=== PATIENT | female | born 1955 | race African-American/Black ===

== ENCOUNTER 2018-10-07 16:09 | Emergency (ER) | payer MEDICARE, MEDICAID ==
[~2018-10-07] VITALS: Ht 160 cm; Wt 88.5 kg
[~2018-10-07 16:09] MED LIST: ALPR0.5T PO; ALPR0.5T7 PO; ASCO-262 PO; ASP325T PO; CEFU250T PO; CHOL200059 PO; CRAN500C4 PO; DULO30CA PO; ESTR1TAB24 PO; ESTRADIOL; FAMO-119 PO; FAMO20TA5 PO; FURO20TA4 PO; HYDR-34 PO; HYDR-3820 PO; LAMO100T PO; LAMO100T69 PO; LISI20TA PO; OMEP20TA7 PO; OXYB10TA PO; OXYC1TAB12 PO; POLY255P16 PO; PREG300C PO; PRILOSEC; PSEU30TA18 PO; RT-ALBUINH INH; VALA10004 PO; ZOLP10TA5 PO
--- OUTSIDE RECORDS SUMMARY | 2018-10-07 16:15 | XMS REPORT ---
Author Author SUNI BARNETT Organization [facility] Address [address] [place] [address] Care Team Providers Care Cobbler Upper Name Role Phone SUNI BARNETT Unavailable PROBLEMS Unknown Problems ALLERGIES Substance Reaction Event Type Date Status Ultram Unknown Drug Allergy Aug, Active Naproxen Unknown Drug Allergy Aug, Active Lyrica Unknown Drug Allergy Aug, Active Gabapentin Unknown Drug Allergy Aug, Active Cymbalta Unknown Drug Allergy Aug, Active coconut Unknown Non Drug Allergy Aug, Active ENCOUNTERS Encounter Location Date Diagnosis [facility] [id number] [place] [address] [phone] Oct, Dental caries K02.9 [facility] [id number] [place] [address] [phone] Aug, Dental caries K02.9 and Encounter for dental examination Z01.20 [facility] [id number] [place] [address] [phone] Jun, Dental examination Z01.20 IMMUNIZATIONS No Known Immunizations SOCIAL HISTORY Never Assessed REASON FOR VISIT SYED PLAN OF CARE Activity Details Follow Up prn Reason:TE #29 VITAL SIGNS Blood pressure systolic 116 mmHg 2017-08-23 Blood pressure diastolic 79 mmHg 2017-08-23 MEDICATIONS Medication Instructions Dosage Frequency Start Date End Date Duration Status Omeprazole 20 MG Orally Once a day 2 capsules 24h Active Estradiol 0.5 MG 1 tablet Active Xanax 0.5 MG Orally Three times a day 1 tablet 8h Active Vitamin D (Ergocalciferol) 01301 UNIT 1 capsule Active Lamotrigine 100 MG Orally Twice a day 2 tablets 12h Active Vitamin D 2000 UNIT Orally Once a day 1 tablet 24h Active Bisoprolol Fumarate Active Oxycodone HCl 10 MG Orally every 6 hrs 1 tablet as needed 6h Active Hydrocodone-Acetaminophen 10-325 MG Orally every 6 hrs 1 tablet as needed 6h Active RESULTS No Results PROCEDURES Procedure Date Ordered Result Body Site LTD ORAL EVALUATION - PROBLEM FOCUS Aug 23, 2017 INTRAORL-PERIAPICAL 1 FILM [id number] Aug 23, 2017 EXTRAC ERUPTED TOOTH/EXPOSED ROOT Aug 23, 2017 BITEWING - SINGLE FILM Aug 23, 2017 INSTRUCTIONS MEDICATIONS ADMINISTERED No Known Medications MEDICAL (GENERAL) HISTORY Type Description Date Medical History Fibromalaga Medical History arthritis Medical History back trouble 4 heriated disks Medical History TIA/2008 Surgical History c-sections Surgical History hysterectomy Hospitalization History chest pains
--- OUTSIDE RECORDS SUMMARY | 2018-10-07 16:15 | XMS REPORT ---
Author Author HIREN MENDEZ [facility] Address [address] [place] [address] Phone Unavailable Care Team Providers Care Hide Inspector And Sorter Name Role Phone HIREN MENDEZ Unavailable Unavailable PROBLEMS Unknown Problems ALLERGIES Substance Reaction Event Type Date Status Ultram Unknown Drug Allergy Jun, Active Lyrica Unknown Drug Allergy Jun, Active Gabapentin Unknown Drug Allergy Jun, Active Cymbalta Unknown Drug Allergy Jun, Active coconut Unknown Non Drug Allergy Jun, Active SOCIAL HISTORY No smoking Hx information available PLAN OF CARE Activity Details Follow Up crow Reason:SRP VITAL SIGNS Blood pressure systolic 112 mmHg 2016-06-23 Blood pressure diastolic 74 mmHg 2016-06-23 MEDICATIONS Medication Instructions Dosage Frequency Start Date End Date Duration Status Vitamin D 2000 UNIT Orally Once a day 1 tablet 24h Active Xanax 0.5 MG Orally Three times a day 1 tablet 8h Active Estradiol 0.5 MG 1 tablet Active Hydrocodone-Acetaminophen 10-325 MG Orally every 6 hrs 1 tablet as needed 6h Active Omeprazole 20 MG Orally Once a day 2 capsules 24h Active Lamotrigine 100 MG Orally Twice a day 2 tablets 12h Active Vitamin D (Ergocalciferol) 50265 UNIT 1 capsule Active Oxycodone HCl 10 MG Orally every 6 hrs 1 tablet as needed 6h Active RESULTS No Results PROCEDURES Procedure Date Ordered Related Diagnosis Body Site COMP ORAL EVALUATION - NEW/EST PT Jun 23, 2016 PANORAMIC FILM SEE ALSO CODE 02354 Jun 23, 2016 INTRAORL-PERIAPICAL EA ADD FILM Jun 23, 2016 INTRAORL-PERIAPICAL 1 FILM 96704 Jun 23, 2016 BITEWINGS - FOUR FILMS Jun 23, 2016 INTRAORL-PERIAPICAL EA ADD FILM Jun 23, 2016 IMMUNIZATIONS No Known Immunizations
--- OUTSIDE RECORDS SUMMARY | 2018-10-07 16:15 | XMS REPORT ---
Author Author SUNI BARNETT Organization [facility] Address [address] [place] [address] Care Team Providers Care Rubber And Plastics Worker Name Role Phone SUNI BARNETT Unavailable PROBLEMS Unknown Problems ALLERGIES Substance Reaction Event Type Date Status Ultram Unknown Drug Allergy Oct, Active Naproxen Unknown Drug Allergy Oct, Active Lyrica Unknown Drug Allergy Oct, Active Gabapentin Unknown Drug Allergy Oct, Active Cymbalta Unknown Drug Allergy Oct, Active coconut Unknown Non Drug Allergy Oct, Active ENCOUNTERS Encounter Location Date Diagnosis [facility] [id number] [place] [address] [id number] Oct, Dental caries K02.9 [facility] [id number] [place] [address] [id number] Aug, Dental caries K02.9 and Encounter for dental examination Z01.20 [facility] [id number] [place] [address] [phone] Jun, Dental examination Z01.20 IMMUNIZATIONS No Known Immunizations SOCIAL HISTORY Never Assessed REASON FOR VISIT TE #29 PLAN OF CARE Activity Details Follow Up prn Reason:HOLGER VITAL SIGNS Blood pressure systolic 132 mmHg 2017-10-18 Blood pressure diastolic 78 mmHg 2017-10-18 MEDICATIONS Medication Instructions Dosage Frequency Start Date End Date Duration Status Omeprazole 20 MG Orally Once a day 2 capsules 24h Active Xanax 0.5 MG Orally Three times a day 1 tablet 8h Active Estradiol 0.5 MG 1 tablet Active Bisoprolol Fumarate Active Lamotrigine 100 MG Orally Twice a day 2 tablets 12h Active Vitamin D 2000 UNIT Orally Once a day 1 tablet 24h Active Vitamin D (Ergocalciferol) 29358 UNIT 1 capsule Active Hydrocodone-Acetaminophen 10-325 MG Orally every 6 hrs 1 tablet as needed 6h Active Oxycodone HCl 10 MG Orally every 6 hrs 1 tablet as needed 6h Active RESULTS No Results PROCEDURES Procedure Date Ordered Result Body Site INTRAORL-PERIAPICAL 1 FILM 47699 October 18, 2017 INTRAORL-PERIAPICAL EA ADD FILM October 18, 2017 EXTRAC ERUPTED TOOTH/EXPOSED ROOT October 18, 2017 INSTRUCTIONS MEDICATIONS ADMINISTERED No Known Medications MEDICAL (GENERAL) HISTORY Type Description Date Medical History Fibromalaga Medical History arthritis Medical History back trouble 4 heriated disks Medical History TIA/2008 Surgical History c-sections Surgical History hysterectomy Hospitalization History chest pains
--- OUTSIDE RECORDS SUMMARY | 2018-10-07 16:15 | XMS REPORT | Continuity of Care Document ---
Author Author [facility] Organization [facility] Address Unknown Phone Unavailable Allergies Active Description Code Type Severity Reaction Onset Reported/Identified Relationship to Patient Clinical Status Yes gabapentin [id number] Drug Allergy Unknown N/A 09/13/2015 Yes iodine [id number] Drug Allergy Unknown N/A 09/13/2015 Yes pregabalin [id number] Drug Allergy Unknown N/A 09/13/2015 Yes tramadol [id number] Drug Allergy Unknown N/A 09/13/2015 Yes ketorolac [id number] Drug Allergy Mild N/V 09/30/2015 Yes amitriptyline [id number] Drug Allergy Unknown N/A 09/30/2015 Medications There is no data. Problems Date Dx Coded Attending Type Code Diagnosis Diagnosed By 09/13/2015 LIDIA JOHNSON Ot K29.70 GASTRITIS, UNSPECIFIED, WITHOUT BLEEDING 09/13/2015 LIDIA JOHNSON Ot M79.2 NEURALGIA AND NEURITIS, UNSPECIFIED 09/13/2015 LIDIA JOHNSON Ot M79.604 PAIN IN RIGHT LEG 09/13/2015 LIDIA JOHNSON Ot R51 HEADACHE 10/01/2015 CAT MAXWELL MD Ot M54.10 RADICULOPATHY, SITE UNSPECIFIED 10/01/2015 CAT MAXWELL MD Ot M79.7 FIBROMYALGIA 10/01/2015 CAT MAXWELL MD Ot N39.0 URINARY TRACT INFECTION, SITE NOT SPECIF 10/01/2015 CAT MAXWELL MD Ot R07.89 OTHER CHEST PAIN 10/01/2015 CAT MAXWELL MD Ot R55 SYNCOPE AND COLLAPSE 10/01/2015 CAT MAXWELL MD Ot M54.10 10/01/2015 CAT MAXWELL MD Ot M79.7 10/01/2015 CAT MAXWELL MD Ot N39.0 10/01/2015 CAT MAXWELL MD Ot R07.89 10/01/2015 CAT MAXWELL MD, Ot R55 Procedures There is no data. Results There is no data. Encounters ACCT No. Visit Date/Time Discharge Status Pt. Type Provider Facility Loc./Unit Complaint [id number] 09/30/2015 20:45:00 10/01/2015 13:57:00 DIS Inpatient CAT MAXWELL MD [facility] [address] [id number] 09/13/2015 19:33:00 09/13/2015 22:13:00 DIS Emergency LIDIA JOHNSON [facility] ER [id number] 10/07/2018 09:40:00 ACT Outpatient [facility]
[2018-10-07] MEDS ORDERED: NS IV 500 ML 500 ML IV ONE (16:18)
--- NOTE | 2018-10-07 16:30 | ED General ---
General Stated Complaint: PT FEELING LIGHT HEADED, SOB Source of Information: Patient Exam Limitations: No Limitations History of Present Illness Date Seen by Provider: Oct 07, 2018 Time Seen by Provider: 16:09 Initial Comments Here with report of generalized feeling of weakness. She had finished physical therapy for her knee and had drank a Sprite. She suddenly became very weak all over and felt a little sweaty. Had some nausea but no vomiting. She is feeling a little better now. She had a similar reaction yesterday after eating some sweets and is concerned that she is diabetic. Denies chest pain or breathing problems. Reports taking her meds as directed. Reported that she nearly passed out. Recently completed treatment for urinary tract infection Timing/Duration: 1 Hour, Changing Over Time Severity: Moderate Modifying Factors: improves with Rest Associated Systoms: No Chest Pain, No Cough; Diaphoresis; No Fever/Chills, No Loss of Appetite, No Nausea/Vomiting, No Shortness of Air; Weakness Allergies and Home Medications Allergies Coded Allergies: amitriptyline (Verified Allergy, Unknown, 09/30/15) gabapentin (Verified Allergy, Unknown, 09/13/15) pregabalin (Verified Allergy, Unknown, 09/13/15) tramadol (Verified Allergy, Unknown, 09/13/15) ketorolac (Verified Adverse Reaction, Mild, N/V, 09/30/15) iodine (Unverified Adverse Reaction, Unknown, 09/13/15) Home Medications Albuterol Sulfate 8.5 Gm Hfa.aer.ad, 2 PUFF INH Q6H PRN for SHORTNESS OF BREATH, (Reported) Alprazolam 0.5 Mg Tablet, 0.5 MG PO QID PRN for ANXIETY, (Reported) Ascorbate Calcium 500 Mg Tablet, 500 MG PO DAILY, (Reported) Cefuroxime Axetil 250 Mg Tablet, 250 MG PO BID Prescribed by: CAT MAXWELL on 10/01/15 1113 Cholecalciferol (Vitamin D3) 2,000 Unit Tablet, 2,000 UNIT PO DAILY, (Reported) Cranberry Extract 500 Mg Capsule, 500 MG PO DAILY, (Reported) Estradiol 1 Mg Tablet, 1 MG PO DAILY, (Reported) Furosemide 20 Mg Tablet, 20 MG PO DAILY PRN for SWELLING, (Reported) Hydrocodone/Acetaminophen 1 Each Tablet, 1 TAB PO Q4H PRN for PAIN, (Reported) Lamotrigine 100 Mg Tablet, 100 MG PO BID, (Reported) LAST FILLED #60 06-15-15 Omeprazole 20 Mg Tablet.dr, 20 MG PO DAILY Prescribed by: CAT MAXWELL on 10/01/15 1041 Oxybutynin Chloride 10 Mg Tab.er.24, 10 MG PO DAILY, (Reported) Polyethylene Glycol 3350 255 Gm Powder, 17 GM PO DAILY PRN for CONSTIPATION, ( Reported) Zolpidem Tartrate 10 Mg Tablet, 10 MG PO HS PRN for SLEEP, (Reported) Patient Home Medication List Home Medication List Reviewed: Yes Review of Systems Review of Systems Constitutional: see HPI; No chills, No fever; malaise, weakness EENTM: no symptoms reported Respiratory: No cough, No short of breath Cardiovascular: No chest pain, No edema; syncope Gastrointestinal: No abdominal pain; nausea; No vomiting Genitourinary: no symptoms reported : No Musculoskeletal: no symptoms reported All Other Systems Reviewed Negative Unless Noted: Yes Past Xpcufyc-Fipreg-Ovqorc Hx Past Med/Social Hx: Reviewed Nursing Past Med/Soc Hx Patient Social History Alcohol Use: Denies Use Recreational Drug Use: No Smoking Status: Never a Smoker Recent Foreign Travel: No Contact w/Someone Who Travel: No Immunizations Up To Date PED Vaccines UTD: Yes Date of Influenza Vaccine: Jun 01, 2015 Past Medical History Surgeries: Yes Section, Hysterectomy, Orthopedic Respiratory: No Currently Using CPAP: No Currently Using BIPAP: No Cardiac: Yes Chronic Edema/Swelling Neurological: Yes Stroke 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 Disorders: No Female 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 Disorders: Denies Sexually Transmitted Disease: No HIV/AIDS: No UTI-Chronic Gastrointestinal: Yes Gastroesophageal Reflux, Chronic Constipation, Polyps, Hiatal Hernia Musculoskeletal: Yes Osteoporosis, Fibromyalgia Loss of Vision: Denies Hearing Impairment: Denies Psychosocial: Yes Anxiety Adverse Reaction/Blood Tranf: No Family Medical History Reviewed Nursing Family Hx Heart Disease Physical Exam Vital Signs Vital Signs - First Documented 10/07/18 16:15 Temp 96.9 Pulse 68 Resp 22 B/P (MAP) 119/86 (97) Pulse Ox 98 O2 Delivery Room Air Capillary Refill : Height, Weight, BMI Height: 5'6.00" Weight: 171lbs. 8.0oz. 77.439431wk; 27.60 BMI Method: General Appearance: No Apparent Distress, WD/WN HEENT: PERRL/EOMI, Pharynx Normal Neck: Non Tender, Supple Respiratory: Lungs Clear, Normal Breath Sounds Cardiovascular: Regular Rate, Rhythm, No Murmur Gastrointestinal: Non Tender, Soft Extremity: Normal Range of Motion, Non Tender Neurologic/Psychiatric: Alert, Oriented x3 Skin: Normal Color, Warm/Dry Progress/Results/Core Measures Suspected Sepsis SIRS Temperature: Pulse: Respiratory Rate: Laboratory Tests 10/07/18 16:27: White Blood Count 4.5 Blood Pressure / Mean: Laboratory Tests 10/07/18 16:27: Creatinine 1.09, Platelet Count 267, Total Bilirubin 0.4 Results/Orders Lab Results Laboratory Tests Test 10/07/18 16:15 10/07/18 16:27 10/07/18 17:00 Range/Units Glucometer 106 70-110 MG/DL White Blood Count 4.5 4.3-11.0 10^3/uL Red Blood Count 3.82 L 4.35-5.85 10^6/uL Hemoglobin 11.4 L 11.5-16.0 G/DL Hematocrit 36 35-52 % Mean Corpuscular Volume 94 80-99 FL Mean Corpuscular Hemoglobin 30 25-34 PG Mean Corpuscular Hemoglobin Concent 32 32-36 G/DL Red Cell Distribution Width 13.3 10.0-14.5 % Platelet Count 267 130-400 10^3/uL Mean Platelet Volume 9.0 7.4-10.4 FL Neutrophils (%) (Auto) 37 L 42-75 % Lymphocytes (%) (Auto) 54 H 12-44 % Monocytes (%) (Auto) 7 0-12 % Eosinophils (%) (Auto) 2 0-10 % Basophils (%) (Auto) 1 0-10 % Neutrophils # (Auto) 1.7 L 1.8-7.8 X 10^3 Lymphocytes # (Auto) 2.4 1.0-4.0 X 10^3 Monocytes # (Auto) 0.3 0.0-1.0 X 10^3 Eosinophils # (Auto) 0.1 0.0-0.3 10^3/uL Basophils # (Auto) 0.0 0.0-0.1 10^3/uL D-Dimer 0.42 0.00-0.49 UG/ML Sodium Level 139 135-145 MMOL/L Potassium Level 3.6 3.6-5.0 MMOL/L Chloride Level 99 98-107 MMOL/L Carbon Dioxide Level 29 21-32 MMOL/L Anion Gap 11 5-14 MMOL/L Blood Urea Nitrogen 12 7-18 MG/DL Creatinine 1.09 0.60-1.30 MG/DL Estimat Glomerular Filtration Rate > 60 BUN/Creatinine Ratio 11 Glucose Level 113 H 70-105 MG/DL Calcium Level 9.5 8.5-10.1 MG/DL Corrected Calcium 9.1 8.5-10.1 MG/DL Magnesium Level 1.9 1.8-2.4 MG/DL Total Bilirubin 0.4 0.1-1.0 MG/DL Aspartate Amino Transf (AST/SGOT) 18 5-34 U/L Alanine Aminotransferase (ALT/SGPT) 13 0-55 U/L Alkaline Phosphatase 56 40-136 U/L Troponin T < 6 <=10 NG/L Total Protein 7.3 6.4-8.2 GM/DL Albumin 4.5 3.2-4.5 GM/DL Urine Color YELLOW Urine Clarity CLEAR Urine pH 6.0 5-9 Urine Specific [place] 1.020 1.016-1.022 Urine Protein NEGATIVE NEGATIVE Urine Glucose (UA) NEGATIVE NEGATIVE Urine Ketones NEGATIVE NEGATIVE Urine Nitrite NEGATIVE NEGATIVE Urine Bilirubin NEGATIVE NEGATIVE Urine Urobilinogen 0.2 NORMAL MG/DL Urine Leukocyte Esterase NEGATIVE NEGATIVE Urine RBC (Auto) NEGATIVE NEGATIVE Urine RBC 0-2 /HPF Urine WBC 0-2 /HPF Urine Squamous Epithelial Cells 0-2 /HPF Urine Crystals NONE /LPF Urine Bacteria NEGATIVE /HPF Urine Casts NONE /LPF Urine Mucus FEW /LPF Urine Culture Indicated NO My Orders Orders - KARLY HOPKINS MD Cbc With Automated Diff (10/07/18 16:18) Comprehensive Metabolic Panel (10/07/18 16:18) Fibrin Degradation Products (10/07/18 16:18) Magnesium (10/07/18 16:18) Ua Culture If Indicated (10/07/18 16:18) Troponin T (10/07/18 16:18) Accucheck Stat ONCE (10/07/18 16:18) Ekg Tracing (10/07/18 16:18) Monitor-Rhythm Ecg Trace Only (10/07/18 16:18) Chest 1 View Ap/Pa Only (10/07/18 16:18) Saline Lock/Iv-Start (10/07/18 16:18) Ns Iv 500 Ml (Sodium Chloride 0.9%) (10/07/18 16:18) Hs C Reactive Protein (10/07/18 16:24) Ondansetron Injection (Zofran Injectio (10/07/18 16:45) Medications Given in ED Current Medications Medications Dose Ordered Sig/Roseanne Route Start Time Stop Time Status Last Admin Dose Admin Ondansetron HCl 4 mg ONCE ONCE IVP 10/07/18 16:45 10/07/18 16:46 DC 10/07/18 16:46 4 MG Sodium Chloride 500 ml @ 0 mls/hr Q0M ONCE IV 10/07/18 16:18 10/07/18 16:21 DC 10/07/18 16:46 1,000 MLS/HR Vital Signs/I&O 10/07/18 16:15 Temp 96.9 Pulse 68 Resp 22 B/P (MAP) 119/86 (97) Pulse Ox 98 O2 Delivery Room Air Capillary Refill : Progress Note : Progress Note Seen and evaluated. IV, labs, UA, normal saline 500 mL bolus and EKG ordered. Monitor patient. 1745: Labs reviewed and no significant findings. Chest x-ray does not show any acute abnormalities. Patient is overall feeling much better. She does have follow-up later this month for a large cyst on her kidney that she is having evaluated. She will keep that appointment. At this point though there is no other concerning findings and she had both flu she is safe to go home. Discharged home with return precautions. Patient verbalize understanding instructions and agreement with plan. ECG Initial ECG Impression Date: Oct 07, 2018 Initial ECG Impression Time: 17:06 Initial ECG Rate: 64 Initial ECG Rhythm: Normal Sinus Comment Sinus rhythm with normal axis. No evidence of ST elevation MD. Similar to previous of 09/30/15. Interpreted by me. Departure Impression Primary Impression: Near syncope Disposition: 01 HOME, SELF-CARE Condition: Improved Departure-Patient Inst. Decision time for Depature: 17:47 Referrals: NO,LOCAL PHYSICIAN (PCP/Family) Primary Care Physician Patient Instructions: Syncope (Fainting) (DC) Add. Discharge Instructions: You should eat a normal diet and drink adequate amount of fluids. Avoid heavily sugared foods or fluids. Keep your follow-up appointment with the kidney doctor. Return for worse pain, fever, vomiting, weakness, breathing problems or other concerns as needed. KARLY HOPKINS MD Oct 07, 2018 16:30
[2018-10-07 16:36] LABS: HEMATOCRIT 36 % (35-52); HEMOGLOBIN 11.4 G/DL (11.5-16.0); LYMPHOCYTES % (AUTO) 54 % (12-44); MEAN CORPUSCULAR HEMOGLOBIN 30 PG (25-34); MEAN CORPUSCULAR HGB CONC 32 G/DL (32-36); MEAN CORPUSCULAR VOLUME 94 FL (80-99); MONOCYTES % (AUTO) 7 % (0-12); NEUTROPHILS % (AUTO) 37 % (42-75); PLATELET COUNT 267 10^3/uL (130-400); RED CELL DISTRIBUTION WIDTH 13.3 % (10.0-14.5); WHITE BLOOD COUNT 4.5 10^3/uL (4.3-11.0)
[2018-10-07 16:37] LABS: BASOPHILS % (AUTO) 1 % (0-10); EOSINOPHILS # (AUTO) 0.1 10^3/uL (0.0-0.3); EOSINOPHILS % (AUTO) 2 % (0-10); LYMPHOCYTES # (AUTO) 2.4 X 10^3 (1.0-4.0); MONOCYTES # (AUTO) 0.3 X 10^3 (0.0-1.0); NEUTROPHILS # (AUTO) 1.7 X 10^3 (1.8-7.8)
[2018-10-07] MEDS ORDERED: ONDANSETRON 4 MG/2 ML (SDV) Z0FRAN IVP ONE (16:45)
[2018-10-07 16:59] LABS: CHLORIDE 99 MMOL/L (98-107); POTASSIUM 3.6 MMOL/L (3.6-5.0); SODIUM 139 MMOL/L (135-145)
[2018-10-07 17:00] LABS: ALANINE AMINOTRANSFERASE 13 U/L (0-55); ALBUMIN 4.5 GM/DL (3.2-4.5); ALKALINE PHOSPHATASE 56 U/L (40-136); BILIRUBIN,TOTAL 0.4 MG/DL (0.1-1.0); BUN/CREATININE RATIO 11; CALCIUM 9.5 MG/DL (8.5-10.1); CARBON DIOXIDE 29 MMOL/L (21-32); CREATININE SERUM 1.09 MG/DL (0.60-1.30); GFR ESTIMATED > 60; GLUCOSE 113 MG/DL (70-105); MAGNESIUM 1.9 MG/DL (1.8-2.4); TOTAL PROTEIN 7.3 GM/DL (6.4-8.2)
[2018-10-07 17:17] LABS: BILIRUBIN,URINE NEGATIVE (NEGATIVE); CLARITY,URINE CLEAR; COLOR,URINE YELLOW; GLUCOSE, URINE (UA) NEGATIVE (NEGATIVE); KETONES,URINE NEGATIVE (NEGATIVE); NITRITE,URINE NEGATIVE (NEGATIVE); PROTEIN,URINE NEGATIVE (NEGATIVE)
[2018-10-07 17:18] LABS: BACTERIA,URINE NEGATIVE /HPF; LEUKOCYTE ESTERASE ,URINE NEGATIVE (NEGATIVE); RBC,URINE 0-2 /HPF; SQUAMOUS EPITHELIAL CELL,UR 0-2 /HPF; UROBILINOGEN,URINE 0.2 MG/DL (NORMAL); WBC,URINE 0-2 /HPF
--- NOTE | 2018-10-07 17:52 | Diagnostic Imaging Report ---
INDICATION: Cough, chest pain, shortness of breath. FINDINGS: Frontal view of the chest demonstrates the lungs to be clear. The heart, mediastinum, pulmonary vascularity are normal. IMPRESSION: Negative chest. Dictated by: Dictated on workstation # [id number]
[2018-10-07 17:55] VITALS: BP 117/74
== END 2018-10-07 17:58 | disposition home or self-care (01) ==
LOC: EDUNIT# 16:09 → ER FS 16:12
DX: R55 Syncope and collapse (principal); E11.9 Type 2 diabetes mellitus without complications; K21.9 Gastro-esophageal reflux disease without esophagitis; M81.0 Age-related osteoporosis without current pathological fracture; F41.9 Anxiety disorder, unspecified; Z88.6 Allergy status to analgesic agent; Z88.4 Allergy status to anesthetic agent; Z91.041 Radiographic dye allergy status; Z82.49 Family history of ischemic heart disease and other diseases of the circulatory system; Z88.8 Allergy status to other drugs, medicaments and biological substances; Z90.710 Acquired absence of both cervix and uterus; Z98.890 Other specified postprocedural states; Z86.73 Personal history of transient ischemic attack (TIA), and cerebral infarction without residual deficits; Z87.440 Personal history of urinary (tract) infections; Z87.19 Personal history of other diseases of the digestive system; Z86.010 Personal history of colon polyps
CPT/HCPCS: 36415; 71045; 80053; 81000; 82962; 83735; 84484; 85025; 85379; 86141; 93005; 93041; 96374

== ENCOUNTER 2018-12-15 00:53 | Emergency (ER) | payer MEDICARE ==
[~2018-12-15] VITALS: Ht 162.6 cm; Wt 86.2 kg
--- OUTSIDE RECORDS SUMMARY | 2018-12-15 00:59 | XMS REPORT | Continuity of Care Document ---
Author Organization Unknown Address Unknown Allergies Active Description Code Type Severity Reaction Onset Reported/Identified Relationship to Patient Clinical Status Yes gabapentin [id number] Drug Allergy Unknown N/A 09/13/2015 Yes iodine [id number] Drug Allergy Unknown N/A 09/13/2015 Yes pregabalin [id number] Drug Allergy Unknown N/A 09/13/2015 Yes tramadol [id number] Drug Allergy Unknown N/A 09/13/2015 Yes ketorolac [id number] Drug Allergy Mild N/V 09/30/2015 Yes amitriptyline [id number] Drug Allergy Unknown N/A 09/30/2015 Medications There is no data. Problems Date Dx Coded Attending Type Code Diagnosis Diagnosed By 09/13/2015 LIDIA JOHNSON Ot K29.70 GASTRITIS, UNSPECIFIED, WITHOUT BLEEDING 09/13/2015 LIDIA JOHNSON Ot M79.2 NEURALGIA AND NEURITIS, UNSPECIFIED 09/13/2015 LIDIA JOHNSON Ot M79.604 PAIN IN RIGHT LEG 09/13/2015 LIDIA JOHNSON Ot R51 HEADACHE 10/01/2015 ALISSA VILLEDA, CAT Herrera Ot M54.10 RADICULOPATHY, SITE UNSPECIFIED 10/01/2015 ALISSA VILLEDA, CAT Herrera Ot M79.7 FIBROMYALGIA 10/01/2015 ALISSA VILLEDA, CAT Herrera Ot N39.0 URINARY TRACT INFECTION, SITE NOT SPECIF 10/01/2015 ALISSA VILLEDA, CAT Herrera Ot R07.89 OTHER CHEST PAIN 10/01/2015 CAT MAXWELL MD Ot R55 SYNCOPE AND COLLAPSE 10/01/2015 CAT MAXWELL MD Ot M54.10 10/01/2015 CAT MAXWELL MD Ot M79.7 10/01/2015 CAT MAXWELL MD Ot N39.0 10/01/2015 CAT MAXWELL MD Ot R07.89 10/01/2015 CAT MAXWELL MD Ot R55 10/07/2018 KARLY HOPKINS MD, Ot E11.9 TYPE 2 DIABETES MELLITUS WITHOUT COMPLIC 10/07/2018 KARLY HOPKINS MD, Ot F41.9 ANXIETY DISORDER, UNSPECIFIED 10/07/2018 KARLY HOPKINS MD, Ot K21.9 GASTRO-ESOPHAGEAL REFLUX DISEASE WITHOUT 10/07/2018 KARLY HOPKINS MD, Ot M81.0 AGE-RELATED OSTEOPOROSIS W/O CURRENT PAT 10/07/2018 KARLY HOPKINS MD, Ot R53.1 WEAKNESS 10/07/2018 KARLY HOPKINS MD, Ot R55 SYNCOPE AND COLLAPSE 10/07/2018 KARLY HOPKINS MD, Ot Z82.49 FAMILY HX OF ISCHEM HEART DIS AND OTH DI 10/07/2018 KARLY HOPKINS MD, Ot Z86.010 PERSONAL HISTORY OF COLONIC POLYPS 10/07/2018 KARLY HOPKINS MD, Ot Z86.73 PRSNL HX OF TIA (TIA), AND CEREB INFRC W 10/07/2018 KARLY HOPKINS MD, Ot Z87.19 PERSONAL HISTORY OF OTHER DISEASES OF TH 10/07/2018 KARLY HOPKINS MD, Ot Z87.440 PERSONAL HISTORY OF URINARY (TRACT) INFE 10/07/2018 KARLY HOPKINS MD, Ot Z88.4 ALLERGY STATUS TO ANESTHETIC AGENT STATU 10/07/2018 KARLY HOPKINS MD, Ot Z88.6 ALLERGY STATUS TO ANALGESIC AGENT STATUS 10/07/2018 KARLY HOPKINS MD, Ot Z88.8 ALLERGY STATUS TO OT DRUG/MEDS/BIOL SUB 10/07/2018 KARLY HOPKINS MD, Ot Z90.710 ACQUIRED ABSENCE OF BOTH CERVIX AND UTER 10/07/2018 KARLY HOPKINS MD, Ot Z91.041 RADIOGRAPHIC DYE ALLERGY STATUS 10/07/2018 KARLY HOPKINS MD, Ot Z98.890 OTHER SPECIFIED POSTPROCEDURAL STATES 10/12/2018 KARLY HOPKINS MD, Ot E11.9 TYPE 2 DIABETES MELLITUS WITHOUT COMPLIC 10/12/2018 KARLY HOPKINS MD, Ot F41.9 ANXIETY DISORDER, UNSPECIFIED 10/12/2018 KARLY HOPKINS MD, Ot K21.9 GASTRO-ESOPHAGEAL REFLUX DISEASE WITHOUT 10/12/2018 KARLY HOPKINS MD, Ot M81.0 AGE-RELATED OSTEOPOROSIS W/O CURRENT PAT 10/12/2018 KARLY HOPKINS MD, Ot R53.1 WEAKNESS 10/12/2018 KARLY HOPKINS MD, Ot R55 SYNCOPE AND COLLAPSE 10/12/2018 KARLY HOPKINS MD, Ot Z82.49 FAMILY HX OF ISCHEM HEART DIS AND OTH DI 10/12/2018 KARLY HOPKINS MD, Ot Z86.010 PERSONAL HISTORY OF COLONIC POLYPS 10/12/2018 KARLY HOPKINS MD, Ot Z86.73 PRSNL HX OF TIA (TIA), AND CEREB INFRC W 10/12/2018 KARLY HOPKINS MD, Ot Z87.19 PERSONAL HISTORY OF OTHER DISEASES OF TH 10/12/2018 KARLY HOPKINS MD, Ot Z87.440 PERSONAL HISTORY OF URINARY (TRACT) INFE 10/12/2018 KARLY HOPKINS MD, Ot Z88.4 ALLERGY STATUS TO ANESTHETIC AGENT STATU 10/12/2018 KARLY HOPKINS MD, Ot Z88.6 ALLERGY STATUS TO ANALGESIC AGENT STATUS 10/12/2018 KARLY HOPKINS MD, Ot Z88.8 ALLERGY STATUS TO OTH DRUG/MEDS/BIOL SUB 10/12/2018 KARLY HOPKINS MD, Ot Z90.710 ACQUIRED ABSENCE OF BOTH CERVIX AND UTER 10/12/2018 KARLY HOPKINS MD, Ot Z91.041 RADIOGRAPHIC DYE ALLERGY STATUS 10/12/2018 KARLY HOPKINS MD, Ot Z98.890 OTHER SPECIFIED POSTPROCEDURAL STATES Procedures There is no data. Results Test Result Range CULTURE, URINE - 09/05/18 17:35 CULTURE, URINE, ROUTINE SEE NOTE NRG CULTURE, URINE - 10/07/18 09:21 CULTURE, URINE, ROUTINE SEE NOTE NRG Capillary blood glucose measurement by glucometer (mass/volume) - 10/07/18 16:15 Capillary blood glucose measurement by glucometer (mass/volume) 106 mg/dL 70-110 Complete blood count (CBC) with automated white blood cell (WBC) differential - 10/07/18 16:27 Blood leukocytes automated count (number/volume) 4.5 10*3/uL 4.3-11.0 Blood erythrocytes automated count (number/volume) 3.82 10*6/uL 4.35-5.85 Venous blood hemoglobin measurement (mass/volume) 11.4 g/dL 11.5-16.0 Blood hematocrit (volume fraction) 36 % 35-52 Automated erythrocyte mean corpuscular volume 94 [foz_us] 80-99 Automated erythrocyte mean corpuscular hemoglobin (mass per erythrocyte) 30 pg 25-34 Automated erythrocyte mean corpuscular hemoglobin concentration measurement (mass/volume) 32 g/dL 32-36 Automated erythrocyte distribution width ratio 13.3 % 10.0- 14.5 Automated blood platelet count (count/volume) 267 10*3/uL 130-400 Automated blood platelet mean volume measurement 9.0 [foz_us] 7.4-10.4 Automated blood neutrophils/100 leukocytes 37 % 42-75 Automated blood lymphocytes/100 leukocytes 54 % 12-44 Blood monocytes/100 leukocytes 7 % 0-12 Automated blood eosinophils/100 leukocytes 2 % 0-10 Automated blood basophils/100 leukocytes 1 % 0-10 Blood neutrophils automated count (number/volume) 1.7 10*3 1.8-7.8 Blood lymphocytes automated count (number/volume) 2.4 10*3 1.0-4.0 Blood monocytes automated count (number/volume) 0.3 10*3 0.0- 1.0 Automated eosinophil count 0.1 10*3/uL 0.0-0.3 Automated blood basophil count (count/volume) 0.0 10*3/uL 0.0-0.1 Comprehensive metabolic panel - 10/07/18 16:27 Serum or plasma sodium measurement (moles/volume) 139 mmol/L 135-145 Serum or plasma potassium measurement (moles/volume) 3.6 mmol/L 3.6-5.0 Serum or plasma chloride measurement (moles/volume) 99 mmol/L 98-107 Carbon dioxide 29 mmol/L 21-32 Serum or plasma anion gap determination (moles/volume) 11 mmol/L 5-14 Serum or plasma urea nitrogen measurement (mass/volume) 12 mg/dL 7-18 Serum or plasma creatinine measurement (mass/volume) 1.09 mg/dL 0.60-1.30 Serum or plasma urea nitrogen/creatinine mass ratio 11 NRG Serum or plasma creatinine measurement with calculation of estimated glomerular filtration rate > NRG Serum or plasma glucose measurement (mass/volume) 113 mg/dL 70-105 Serum or plasma calcium measurement (mass/volume) 9.5 mg/dL 8.5-10.1 Serum or plasma total bilirubin measurement (mass/volume) 0.4 mg/dL 0.1-1.0 Serum or plasma alkaline phosphatase measurement (enzymatic activity/volume) 56 U/L 40-136 Serum or plasma aspartate aminotransferase measurement (enzymatic activity/volume) 18 U/L 5-34 Serum or plasma alanine aminotransferase measurement (enzymatic activity/volume) 13 U/L 0-55 Serum or plasma protein measurement (mass/volume) 7.3 g/dL 6.4-8.2 Serum or plasma albumin measurement (mass/volume) 4.5 g/dL 3.2-4.5 CALCIUM CORRECTED 9.1 mg/dL 8.5-10.1 Magnesium - 10/07/18 16:27 Magnesium 1.9 mg/dL 1.8-2.4 TROPONIN T - 10/07/18 16:27 TROPONIN T < 6 <=10 Fibrin D-dimer FEU measurement in platelet poor plasma (mass/volume) - 10/07/18 16:27 Fibrin D-dimer FEU measurement in platelet poor plasma (mass/volume) 0.42 ug/mL 0.00-0.49 Serum or plasma C reactive protein measurement (mass/volume) - 10/07/18 16:27 Serum or plasma C reactive protein measurement (mass/volume) 0.14 mg/dL 0.00-0.50 Complete urinalysis with reflex to culture - 10/07/18 17:00 Urine color determination YELLOW NRG Urine clarity determination CLEAR NRG Urine pH measurement by test strip 6.0 5-9 Specific gravity of urine by test strip 1.020 1.016-1.022 Urine protein assay by test strip, semi-quantitative NEGATIVE NEGATIVE Urine glucose detection by automated test strip NEGATIVE NEGATIVE Erythrocytes detection in urine sediment by light microscopy NEGATIVE NEGATIVE Urine ketones detection by automated test strip NEGATIVE NEGATIVE Urine nitrite detection by test strip NEGATIVE NEGATIVE Urine total bilirubin detection by test strip NEGATIVE NEGATIVE Urine urobilinogen measurement by automated test strip (mass/volume) 0.2 mg/dL NORMAL Urine leukocyte esterase detection by dipstick NEGATIVE NEGATIVE Automated urine sediment erythrocyte count by microscopy (number/high power field) [HPF] NRG Automated urine sediment leukocyte count by microscopy (number/high power field) [HPF] NRG Bacteria detection in urine sediment by light microscopy NEGATIVE NRG Squamous epithelial cells detection in urine sediment by light microscopy 0-2 NRG Crystals detection in urine sediment by light microscopy NONE NRG Casts detection in urine sediment by light microscopy NONE NRG Mucus detection in urine sediment by light microscopy FEW NRG Complete urinalysis with reflex to culture NO NRG Encounters ACCT No. Visit Date/Time Discharge Status Pt. Type Provider Facility Loc./Unit Complaint [id number] 12/14/2018 16:00:00 ACT Outpatient YISEL [facility] [id number] 10/07/2018 09:40:00 Document Registration [id number] 09/05/2018 16:40:00 Document Registration [id number] 10/07/2018 16:12:00 10/07/2018 23:59:59 CLS Emergency KARLY HOPKINS MD [facility] FS PT FEELING LIGHT HEADED, SOB [id number] 09/30/2015 20:45:00 10/01/2015 13:57:00 DIS Inpatient ALISSA VILLEDA, CAT Herrera [facility] 4TH [id number] 09/13/2015 19:33:00 09/13/2015 22:13:00 DIS Emergency LIDIA JOHNSON [facility]
--- NOTE | 2018-12-15 01:21 | ED Integumentary General ---
General Chief Complaint: Bite-Animal/Human/Insect Stated Complaint: UNUSUAL CAT ON LT LEG Nursing Triage Note: pt seen in office wednesday for possible spider bite to left lateral knee and was placed on keflex and bactrim. pt unsure if she was even bitten. History of Present Illness Date Seen by Provider: Dec 15, 2018 Time Seen by Provider: 01:08 Initial Comments The patient is a pleasant 63-year-old female who presents for evaluation of redness to the left lateral upper leg. She states that she had a streaking over the left anterior thigh and saw her PCP on Wednesday. She states that she was prescribed Keflex and Bactrim and has been taking those medications as directed. She states that red streak has gone away but while she was lying in bed tonight she noticed a new red area just above and to the left of the left knee. She states that she wants to know what this is an what to do about it. The patient is alert and oriented 4, calm, appears to be in no distress. She does not have a fever. She has no other complaints or concerns. Timing/Duration: just prior to arrival Severity: mild Location: extremities (left lower) Possible Cause: insect bite Allergies and Home Medications Allergies Coded Allergies: amitriptyline (Verified Allergy, Unknown, 09/30/15) gabapentin (Verified Allergy, Unknown, 09/13/15) pregabalin (Verified Allergy, Unknown, 09/13/15) tramadol (Verified Allergy, Unknown, 09/13/15) ketorolac (Verified Adverse Reaction, Mild, N/V, 09/30/15) iodine (Unverified Adverse Reaction, Unknown, 09/13/15) Home Medications Albuterol Sulfate 8.5 Gm Hfa.aer.ad, 2 PUFF INH Q6H PRN for SHORTNESS OF BREATH, (Reported) Alprazolam 0.5 Mg Tablet, 0.5 MG PO QID PRN for ANXIETY, (Reported) Ascorbate Calcium 500 Mg Tablet, 500 MG PO DAILY, (Reported) Cefuroxime Axetil 250 Mg Tablet, 250 MG PO BID Prescribed by: CAT MAXWELL on 10/01/15 1113 Cholecalciferol (Vitamin D3) 2,000 Unit Tablet, 2,000 UNIT PO DAILY, (Reported) Cranberry Extract 500 Mg Capsule, 500 MG PO DAILY, (Reported) Estradiol 1 Mg Tablet, 1 MG PO DAILY, (Reported) Furosemide 20 Mg Tablet, 20 MG PO DAILY PRN for SWELLING, (Reported) Hydrocodone/Acetaminophen 1 Each Tablet, 1 TAB PO Q4H PRN for PAIN, (Reported) Lamotrigine 100 Mg Tablet, 100 MG PO BID, (Reported) LAST FILLED #60 06-15-15 Omeprazole 20 Mg Tablet.dr, 20 MG PO DAILY Prescribed by: CAT MAXWELL on 10/01/15 1041 Oxybutynin Chloride 10 Mg Tab.er.24, 10 MG PO DAILY, (Reported) Polyethylene Glycol 3350 255 Gm Powder, 17 GM PO DAILY PRN for CONSTIPATION, (Reported) Zolpidem Tartrate 10 Mg Tablet, 10 MG PO HS PRN for SLEEP, (Reported) Patient Home Medication List Home Medication List Reviewed: Yes Review of Systems Review of Systems Constitutional: no symptoms reported EENTM: no symptoms reported Respiratory: no symptoms reported Cardiovascular: no symptoms reported Gastrointestinal: no symptoms reported Genitourinary: no symptoms reported Musculoskeletal: no symptoms reported Skin: other (area of skin redness just proximal to the left knee) Psychiatric/Neurological: No Symptoms Reported Endocrine: No Symptoms Reported Hematologic/Lymphatic: No Symptoms Reported All Other Systems Reviewed Negative Unless Noted: Yes Past Pxrdtep-Wcoblq-Gjatts Hx Past Med/Social Hx: Reviewed Nursing Past Med/Soc Hx, Reviewed and Corrections made Patient Social History Alcohol Use: Denies Use Recreational Drug Use: No Smoking Status: Never a Smoker 2nd Hand Smoke Exposure: No Recent Foreign Travel: No Contact w/Someone Who Travel: No Recent Infectious Disease Expo: No Recent Hopitalizations: No Physical Abuse: No Sexual Abuse: No Mistreated: No Fear: No Immunizations Up To Date PED Vaccines UTD: Yes Date of Influenza Vaccine: Jun 01, 2015 Seasonal Allergies Seasonal Allergies: No Past Medical History Surgeries: Yes Section, Hysterectomy, Orthopedic Respiratory: No Currently Using CPAP: No Currently Using BIPAP: No Cardiac: Yes Chronic Edema/Swelling Neurological: Yes Stroke 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 Disorders: No Female 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 Disorders: Denies Sexually Transmitted Disease: No HIV/AIDS: No Genitourinary: Yes (Right renal cyst) UTI-Chronic Gastrointestinal: Yes Gastroesophageal Reflux, Chronic Constipation, Polyps, Hiatal Hernia Musculoskeletal: Yes Osteoporosis, Fibromyalgia Endocrine: No Loss of Vision: Denies Hearing Impairment: Denies Cancer: No Psychosocial: Yes Anxiety Integumentary: Yes (H/O SHINGLES) Blood Disorders: No Adverse Reaction/Blood Tranf: No Family Medical History Heart Disease Physical Exam Vital Signs Vital Signs - First Documented 12/15/18 01:04 Temp 97.8 Pulse 79 Resp 18 B/P (MAP) 121/68 (85) Pulse Ox 97 O2 Delivery Room Air Capillary Refill : Less Than 3 Seconds General Appearance: WD/WN, no apparent distress HEENT: PERRL/EOMI, normal ENT inspection, TMs normal, pharynx normal Neck: non-tender, full range of motion Cardiovascular: regular rate, rhythm, no edema, no JVD, no murmur Respiratory: chest non-tender, lungs clear, normal breath sounds, no r espiratory distress, no accessory muscle use Gastrointestinal: normal bowel sounds, non tender, soft Back: normal inspection, no vertebral tenderness Extremities: normal range of motion, non-tender, normal inspection, no pedal edema, no calf tenderness Neurologic/Psychiatric: yam curer II-XII nml as tested, alert, normal mood/affect, oriented x 3 Skin: warm/dry, other (. Erythema approximately 5 cm in diameter to the left leg just proximal to the knee and on the lateral aspect, there is a central slightly raised portion, this does appear consistent with an insect bite with local erythema) Lymphatic: no adenopathy Progress/Results/Core Measures Results/Orders Vital Signs/I&O 12/15/18 01:04 Temp 97.8 Pulse 79 Resp 18 B/P (MAP) 121/68 (85) Pulse Ox 97 O2 Delivery Room Air Blood Pressure Mean: 85 Progress Progress Note : Progress Note @0115 - advised the patient to continue taking the prescribed antibiotics and to follow-up with her PCP in the next 1-2 days. The patient is afebrile, well- appearing, and appears to have an insect bite with local inflammation. She is stable for discharge at this time. Departure Impression Primary Impression: Insect bites Disposition: HOME, SELF-CARE Condition: Stable Departure-Patient Inst. Decision time for Depature: 01:18 Referrals: NO,LOCAL PHYSICIAN (PCP/Family) Primary Care Physician Patient Instructions: Insect Bites and Stings Add. Discharge Instructions: Continue to take the 2 antibiotics previously prescribed. In addition apply topical triple antibiotic such as Neosporin to the red area. Return to the emergency department for new or worsening symptoms. Follow up with your doctor in the next 1-2 days. DANICA KILGORE DO Dec 15, 2018 01:21
[2018-12-15 01:32] VITALS: BP 121/68
[2018-12-15] MEDS ORDERED: NEO/POLY/BAC (NEOSPORIN) OINT 15 GM TUBE TOP SCH (09:00)
== END 2018-12-15 01:31 | disposition home or self-care (01) ==
LOC: EDUNIT# 00:53 → ER FS 00:55
DX: S80.862A Insect bite (nonvenomous), left lower leg, initial encounter (principal); K21.9 Gastro-esophageal reflux disease without esophagitis; M81.0 Age-related osteoporosis without current pathological fracture; F41.9 Anxiety disorder, unspecified; Z86.19 Personal history of other infectious and parasitic diseases; Z87.19 Personal history of other diseases of the digestive system; Z86.010 Personal history of colon polyps; Z82.49 Family history of ischemic heart disease and other diseases of the circulatory system; Z86.73 Personal history of transient ischemic attack (TIA), and cerebral infarction without residual deficits; Z88.4 Allergy status to anesthetic agent; Z88.8 Allergy status to other drugs, medicaments and biological substances; Z87.440 Personal history of urinary (tract) infections; Z91.041 Radiographic dye allergy status; Z88.6 Allergy status to analgesic agent; Z90.710 Acquired absence of both cervix and uterus; Z98.890 Other specified postprocedural states; W57.XXXA Bitten or stung by nonvenomous insect and other nonvenomous arthropods, initial encounter

== ENCOUNTER → 2019-03-20 | Outpatient (CLI) | payer MEDICARE ==
--- NOTE | 2019-03-20 14:34 | Diagnostic Imaging Report ---
PROCEDURE: MRI lumbar spine. TECHNIQUE: Multiplanar, multisequence MRI of the lumbar spine was performed without contrast. INDICATION: Chronic low back pain radiating to the right leg. FINDINGS: A left convex lumbar scoliotic curvature is noted. There is normal lordotic curvature. Vertebral body heights are maintained. Marrow signal intensity is unremarkable. No geographic marrow lesion or acute compression fracture is detected. Mild generalized disc desiccation is noted. There is mild disc space narrowing at L2-L3 level. The conus is unremarkable at the L1-L2 level. T12-L1: Central canal is widely patent. Neural foramina are patent. L1-L2: The central canal and neural foramina are widely patent. L2-L3: There is ligamentous thickening and hypertrophic facet changes as well as broad-based disc/osteophyte complex. Mild narrowing of the central canal is seen. Mild bilateral neural foraminal narrowing is detected. L3-L4: Ligamentous thickening and hypertrophic facet changes with broad-based disc/osteophyte complex results in moderate trefoil stenosis to the canal. There is also moderate bilateral neural foraminal stenosis. L4-L5: Ligamentous thickening and facet changes with broad-based disc/osteophyte complex result in severe trefoil stenosis to the central canal. There is severe bilateral lateral recess stenosis as well as significant bilateral neural foraminal stenosis. L5-S1: There is ligamentous thickening and broad-based disc bulging. There is moderate central canal narrowing. Significant bilateral lateral recess stenosis is identified. There is also significant bilateral neural foraminal stenosis. Paraspinous tissues demonstrate a large cyst involving the right kidney anteriorly approximately 4.4 cm in transverse diameter. IMPRESSION: 1. Multilevel lumbar spondylosis with multilevel central canal, lateral recess and neural foramen stenosis described level by level above. 2. No acute compression fracture. 3. Right renal cyst. Dictated by: Dictated on workstation # [id number]
== END ==
LOC: RAD 13:31
PROVIDERS: ATTEND Nurse Practitioner Family
DX: M51.27 Other intervertebral disc displacement, lumbosacral region (principal); M48.07 Spinal stenosis, lumbosacral region; M47.816 Spondylosis without myelopathy or radiculopathy, lumbar region; M41.86 Other forms of scoliosis, lumbar region; M51.36 Other intervertebral disc degeneration, lumbar region; N28.1 Cyst of kidney, acquired
CPT/HCPCS: 72148

== ENCOUNTER 2019-04-25 21:05 | Emergency (ER) | payer MEDICARE ==
[~2019-04-25] VITALS: Ht 162.6 cm; Wt 84.7 kg
--- NOTE | 2019-04-25 21:28 | ED Cough/URI ---
General Chief Complaint: Bite-Animal/Human/Insect Stated Complaint: SOB, CONGESTED Source: patient Exam Limitations: no limitations History of Present Illness Date Seen by Provider: Apr 25, 2019 Time Seen by Provider: 21:15 Initial Comments The patient is a pleasant 64-year-old female who presents for evaluation of cough and nasal congestion as well as subjective fever over the last 3 days or so. She states that she saw her PCP but that he "did not do anything" and did not check her for the flu. She did not yet receive her influenza vaccination. She denies chest pain, vomiting, headache, neck pain or neck stiffness, rash, back or flank pain, urinary complaints, abdominal pain, dizziness or syncope. She is alert and oriented 4, calm, and appears to be in no distress at this time. She also reports a sore throat a few days ago. Timing/Duration: other (3 days) Severity/Quality: productive cough Associated Symptoms: cough, nasal congestion, shortness of breath, sore throat Allergies and Home Medications Allergies Coded Allergies: amitriptyline (Verified Allergy, Unknown, 09/30/15) gabapentin (Verified Allergy, Unknown, 09/13/15) pregabalin (Verified Allergy, Unknown, 09/13/15) tramadol (Verified Allergy, Unknown, 09/13/15) ketorolac (Verified Adverse Reaction, Mild, N/V, 09/30/15) iodine (Unverified Adverse Reaction, Unknown, 09/13/15) Home Medications Albuterol Sulfate 8.5 Gm Hfa.aer.ad, 2 PUFF INH Q6H PRN for SHORTNESS OF BREATH, (Reported) Alprazolam 0.5 Mg Tablet, 0.5 MG PO QID PRN for ANXIETY, (Reported) Ascorbate Calcium 500 Mg Tablet, 500 MG PO DAILY, (Reported) Cefuroxime Axetil 250 Mg Tablet, 250 MG PO BID Prescribed by: CAT MAXWELL on 10/01/15 1113 Cholecalciferol (Vitamin D3) 2,000 Unit Tablet, 2,000 UNIT PO DAILY, (Reported) Cranberry Extract 500 Mg Capsule, 500 MG PO DAILY, (Reported) Estradiol 1 Mg Tablet, 1 MG PO DAILY, (Reported) Furosemide 20 Mg Tablet, 20 MG PO DAILY PRN for SWELLING, (Reported) Hydrocodone/Acetaminophen 1 Each Tablet, 1 TAB PO Q4H PRN for PAIN, (Reported) Lamotrigine 100 Mg Tablet, 100 MG PO BID, (Reported) LAST FILLED #60 06-15-15 Omeprazole 20 Mg Tablet.dr, 20 MG PO DAILY Prescribed by: CAT MAXWELL on 10/01/15 1041 Oxybutynin Chloride 10 Mg Tab.er.24, 10 MG PO DAILY, (Reported) Polyethylene Glycol 3350 255 Gm Powder, 17 GM PO DAILY PRN for CONSTIPATION, (Reported) Zolpidem Tartrate 10 Mg Tablet, 10 MG PO HS PRN for SLEEP, (Reported) Patient Home Medication List Home Medication List Reviewed: Yes Review of Systems Review of Systems Constitutional: malaise EENTM: nose congestion, throat pain Respiratory: cough, short of breath Cardiovascular: no symptoms reported Gastrointestinal: no symptoms reported Genitourinary: no symptoms reported Musculoskeletal: no symptoms reported Skin: no symptoms reported Psychiatric/Neurological: No Symptoms Reported Hematologic/Lymphatic: No Symptoms Reported Immunological/Allergic: no symptoms reported All Other Systems Reviewed Negative Unless Noted: Yes Past Mcacntl-Rnasht-Ihnehk Hx Past Med/Social Hx: Reviewed Nursing Past Med/Soc Hx Patient Social History Alcohol Use: Denies Use Recreational Drug Use: No Smoking Status: Never a Smoker 2nd Hand Smoke Exposure: No Recent Foreign Travel: No Contact w/Someone Who Travel: No Recent Hopitalizations: No Immunizations Up To Date PED Vaccines UTD: Yes Date of Influenza Vaccine: Jun 01, 2015 Seasonal Allergies Seasonal Allergies: No Past Medical History Surgeries: Yes Section, Hysterectomy, Orthopedic Respiratory: No Currently Using CPAP: No Currently Using BIPAP: No Cardiac: Yes Chronic Edema/Swelling Neurological: Yes Stroke 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 Disorders: No Female 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 Disorders: Denies Sexually Transmitted Disease: No HIV/AIDS: No Genitourinary: Yes (Right renal cyst) UTI-Chronic Gastrointestinal: Yes Gastroesophageal Reflux, Chronic Constipation, Polyps, Hiatal Hernia Musculoskeletal: Yes Osteoporosis, Fibromyalgia Endocrine: No Loss of Vision: Denies Hearing Impairment: Denies Cancer: No Psychosocial: Yes Anxiety Integumentary: Yes (H/O SHINGLES) Blood Disorders: No Adverse Reaction/Blood Tranf: No Family Medical History Heart Disease Physical Exam Vital Signs - First Documented 04/25/19 21:20 Temp 36.7 Pulse 64 Resp 18 B/P (MAP) 149/95 (113) Pulse Ox 97 O2 Delivery Room Air Capillary Refill : Height: 5'4.00" Weight: 190lbs. 8.0oz. [id number]; 27.60 BMI Method:Stated General Appearance: WD/WN, no apparent distress HEENT: PERRL/EOMI, pharyngeal erythema (without exudate), other (+nasal conge stion) Neck: non-tender, full range of motion, supple, normal inspection Respiratory: chest non-tender, lungs clear, normal breath sounds, no respiratory distress, no accessory muscle use Cardiovascular: regular rate, rhythm, no edema, no murmur Gastrointestinal: normal bowel sounds, non tender, soft Extremities: normal range of motion, normal inspection, no pedal edema Neurologic/Psychiatric: health professor II-XII nml as tested, no motor/sensory deficits, alert, normal mood/affect, oriented x 3 Skin: normal color, warm/dry Progress/Results/Core Measures Suspected Sepsis SIRS Temperature: Pulse: Respiratory Rate: Blood Pressure / Mean: Results/Orders Lab Results Laboratory Tests Test 04/25/19 21:30 Range/Units Group A Streptococcus Screen NEGATIVE NEGATIVE Micro Results Microbiology 04/25/19 Influenza Types A,B Antigen (CHANTEL) - Final, Complete My Orders Orders - DANICA KILGORE DO Influenza A And B Antigens (04/25/19 21:15) Rapid Strep A Screen (04/25/19 21:20) Chest Pa/Lat (2 View) (04/25/19 21:20) Vital Signs/I&O 04/25/19 04/25/19 21:20 21:20 Temp 36.7 Pulse 64 Resp 18 B/P (MAP) 149/95 (113) Pulse Ox 97 O2 Delivery Room Air Room Air Capillary Refill : Progress Note : Progress Note @2155 - Patient updated on lab and imaging results. Today fails reveal any emergent pathology. The patient will go home with some medications which should help loosen her phlegm and improve her symptoms. Advise close follow-up with her PCP in the next 2-3 days and return to the emergency department for difficulty breathing, new or worsening symptoms. The patient expresses verbal understanding and agreement and is stable for discharge. Diagnostic Imaging Comments [facility]. [place], [place] NAME: MANUELA ESTRADAJosé Luis Hooker [facility] REC#: [id number] PT STATUS: REG ER : 1955 PHYSICIAN: DANICA KILGORE DO ADMIT DATE: 04/25/19/ER FS Draft Date of Exam:04/25/19 CHEST PA/LAT (2 VIEW) Clinical indication: Patient with cough and congestion x2 days. Exam: Chest x-ray PA and lateral views. Comparisons: Chest x-ray dated 10/07/2018. Findings: Lungs/pleura: Lungs are clear. There is no pneumothorax. There is no pleural effusion. Mediastinum: Unremarkable. Pulmonary vasculature: Unremarkable. Heart: Unremarkable. Bones/extrathoracic soft tissue: There are hypertrophic spurs involving the thoracic spine. Impression: There is no radiographic evidence of acute cardiopulmonary process. Dictated on workstation # [id number] Dict: 04/25/192143 Trans: 04/25/192149 [facility] [phone] Interpreted by: DAMIAN WEEMS MD Electronically signed by: Departure Impression Primary Impression: Acute URI Disposition: 01 HOME, SELF-CARE Condition: Stable Departure-Patient Inst. Decision time for Depature: 21:56 Referrals: YISEL BLACKMON MD (PCP) Primary Care Physician NO,LOCAL PHYSICIAN (Family) Primary Care Physician Patient Instructions: Cough, Runny Nose, and the Common Cold (DC), Viral Upper Respiratory Infection, Adult (DC) Add. Discharge Instructions: Take the prescribed medications as directed. Follow-up with your doctor next 2-3 days and return to the Emergency Department immediately. Scripts Benzonatate (TESSALON PERLES) 100 Mg Capsule 100 MG PO Q6H PRN for COUGH, #20 CAP Prov: DANICA KILGORE DO 04/25/19 Prednisone (Prednisone) 20 Mg Tab 20 MG PO DAILY for 5 Days, #5 TAB 0 Refills Prov: DANICA KILGORE DO 04/25/19 Albuterol Sulfate (PROAIR HFA) 1 Puff Puff 2 PUFF IH Q4H for 7 Days, #1 PUFF 1 PUFF = 90 MCG Prov: DANICA KILGORE DO 04/25/19 Guaifenesin/Dextromethorphan (Mucinex Dm ER 600-30 mg Tablet) 1 Each Tab.er.12h 1 EACH PO BID PRN PRN for CONGESTION for 7 Days, #15 TAB Prov: DANICA KILGORE DO 04/25/19 DANICA KILGORE DO Apr 25, 2019 21:28
--- NOTE | 2019-04-25 21:50 | Diagnostic Imaging Report ---
Clinical indication: Patient with cough and congestion x2 days. Exam: Chest x-ray PA and lateral views. Comparisons: Chest x-ray dated 10/07/2018. Findings: Lungs/pleura: Lungs are clear. There is no pneumothorax. There is no pleural effusion. Mediastinum: Unremarkable. Pulmonary vasculature: Unremarkable. Heart: Unremarkable. Bones/extrathoracic soft tissue: There are hypertrophic spurs involving the thoracic spine. Impression: There is no radiographic evidence of acute cardiopulmonary process. Dictated by: Dictated on workstation # [id number]
[2019-04-25] MEDS ORDERED: GUAI-367 PO (21:58)
[2019-04-25] MEDS ORDERED: BENZ100C18 PO (21:58)
[2019-04-25] MEDS ORDERED: PRD20T PO (21:58)
[2019-04-25] MEDS ORDERED: RT-ALBUINH IH (21:58)
[2019-04-25 22:08] VITALS: BP 149/95
== END 2019-04-25 22:08 | disposition home or self-care (01) ==
LOC: EDUNIT# 21:05 → ER FS 21:06
DX: J06.9 Acute upper respiratory infection, unspecified (principal); F41.9 Anxiety disorder, unspecified; K21.9 Gastro-esophageal reflux disease without esophagitis; M79.7 Fibromyalgia; Z90.710 Acquired absence of both cervix and uterus; Z86.73 Personal history of transient ischemic attack (TIA), and cerebral infarction without residual deficits; Z87.440 Personal history of urinary (tract) infections; Z88.8 Allergy status to other drugs, medicaments and biological substances; Z88.5 Allergy status to narcotic agent; Z88.6 Allergy status to analgesic agent; Z79.52 Long term (current) use of systemic steroids; Z82.49 Family history of ischemic heart disease and other diseases of the circulatory system
CPT/HCPCS: 71046; 87430; 87804

== ENCOUNTER 2019-06-01 16:07 | Emergency (ER) | payer MEDICARE ==
[~2019-06-01] VITALS: Ht 162.6 cm; Wt 79.5 kg
[~2019-06-01 16:07] MED LIST changes: +BENZ100C18 PO; +GUAI-367 PO; +PRD20T PO; +RT-ALBUINH IH
[2019-06-01] MEDS ORDERED: morphine INJ 10 MG/ML 1ML (SYR OR VIAL) IM STA (16:30)
[2019-06-01] MEDS ORDERED: CYCLOBENZAPRINE 10 MG (FLEXERIL) TAB PO SCH (16:30)
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
[2019-06-01 18:37] LABS: BACTERIA,URINE FEW /HPF; BILIRUBIN,URINE NEGATIVE (NEGATIVE); CLARITY,URINE CLEAR; COLOR,URINE YELLOW; GLUCOSE, URINE (UA) NEGATIVE (NEGATIVE); KETONES,URINE NEGATIVE (NEGATIVE); LEUKOCYTE ESTERASE ,URINE NEGATIVE (NEGATIVE); NITRITE,URINE NEGATIVE (NEGATIVE); PROTEIN,URINE NEGATIVE (NEGATIVE)
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
[2019-06-01 19:01] VITALS: BP 135/88
== END 2019-06-01 19:03 | disposition home or self-care (01) ==
LOC: EDUNIT# 16:07 → ER FS 16:08
DX: M54.2 Cervicalgia (principal); M54.5 Low back pain; M79.7 Fibromyalgia; K21.9 Gastro-esophageal reflux disease without esophagitis; M81.0 Age-related osteoporosis without current pathological fracture; F41.9 Anxiety disorder, unspecified; Z82.49 Family history of ischemic heart disease and other diseases of the circulatory system; Z86.010 Personal history of colon polyps; Z87.440 Personal history of urinary (tract) infections; Z86.73 Personal history of transient ischemic attack (TIA), and cerebral infarction without residual deficits; Z90.710 Acquired absence of both cervix and uterus; Z79.52 Long term (current) use of systemic steroids; Z88.8 Allergy status to other drugs, medicaments and biological substances; Z88.5 Allergy status to narcotic agent; V49.49XA Driver injured in collision with other motor vehicles in traffic accident, initial encounter
CPT/HCPCS: 70450; 72125; 72131; 74176; 81000

== ENCOUNTER → 2019-07-04 | Outpatient (CLI) | payer OTHER, MEDICARE ==
--- NOTE | 2019-07-04 13:03 | Diagnostic Imaging Report ---
INDICATION: Right ankle pain. TIME OF EXAM: 12:09 p.m. FINDINGS: Three views of the right ankle were obtained. Alignment is normal. Ankle mortise is well maintained. Talar dome is smooth. No fracture or dislocation is seen. IMPRESSION: No acute bony abnormality is detected. Dictated by: Dictated on workstation # [id number]
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
== END ==
LOC: RAD FS 12:16
PROVIDERS: ATTEND Nurse Practitioner
DX: M25.512 Pain in left shoulder (principal); M25.571 Pain in right ankle and joints of right foot; V89.2XXA Person injured in unspecified motor-vehicle accident, traffic, initial encounter
CPT/HCPCS: 73030; 73610

== ENCOUNTER → 2019-07-04 | Outpatient (CLI) | payer OTHER, MEDICARE ==
--- NOTE | 2019-07-04 12:58 | Diagnostic Imaging Report ---
INDICATION: Right third finger pain. TIME OF EXAM: 11:10 a.m. FINDINGS: Multiple views of the right third finger were obtained. Alignment is normal. Phalanges appear to be intact. No fractures are seen. Third metacarpal is intact. IMPRESSION: No acute bony abnormality is detected. Dictated by: Dictated on workstation # [id number]
== END ==
LOC: RAD FS 11:04
PROVIDERS: ATTEND Nurse Practitioner
DX: M79.644 Pain in right finger(s) (principal)
CPT/HCPCS: 73140

== ENCOUNTER → 2019-07-20 | Outpatient (CLI) | payer OTHER, MEDICARE ==
[~2019-07-20] MED LIST changes: -LAMO100T PO; +LAMO100T5 PO; -OXYB10TA PO; +OXYB10TA2 PO
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
== END ==
LOC: RAD FS 13:57
PROVIDERS: ATTEND Nurse Practitioner
DX: M25.511 Pain in right shoulder (principal)
CPT/HCPCS: 73030

== ENCOUNTER → 2019-09-07 | Outpatient (CLI) | payer OTHER, MEDICARE ==
[~2019-09-07] MED LIST changes: +ACHYD1T PO; -HYDR-3820 PO; -OXYB10TA2 PO; +OXYB10TA29 PO
--- NOTE | 2019-09-07 16:03 | Diagnostic Imaging Report ---
EXAMINATION: Right hand at 02:05 p.m. INDICATION: Pain to middle finger. TECHNIQUE: Three views were obtained. FINDINGS: The previous right finger exam of 07/04/2019 failed to show any sign of an acute bony abnormality. On this exam, there is still no fracture, dislocation, or acute bony abnormality evident. The soft tissues also appear similar to the prior exam. There is no sign of a radiopaque foreign body. IMPRESSION: There is still no evidence for an acute bony abnormality. Dictated by: Dictated on workstation # [id number]
--- NOTE | 2019-09-07 18:23 | Diagnostic Imaging Report ---
EXAMINATION: Right ankle radiographs, 3 views. COMPARISON: July 04, 2019. HISTORY: 64-year-old female, right ankle pain. FINDINGS: There is degenerative type calcaneal enthesopathy. There is no ankle joint effusion. The alignment of the ankle mortise is unremarkable. There is no identified acute fracture. There is an os perineum. IMPRESSION: 1. No identified acute bony abnormality of the right ankle. 2. Degenerative type calcaneal enthesopathy. Dictated by: Dictated on workstation # [id number]
== END ==
LOC: RAD FS 13:57
PROVIDERS: ATTEND Nurse Practitioner
DX: M77.31 Calcaneal spur, right foot (principal); M79.644 Pain in right finger(s)
CPT/HCPCS: 73130; 73610

== ENCOUNTER 2020-04-11 21:32 | Emergency (ER) | payer MEDICARE, OTHER ==
--- NOTE | 2020-04-11 22:00 | ED Upper Extremity ---
General Chief Complaint: Upper Extremity Stated Complaint: RT WRIST PAIN,SWELLING Nursing Triage Note: Pt complaining of right wrist pain that has been going on since February Nursing Sepsis Screen: No Definite Risk Source: patient History of Present Illness Date Seen by Provider: Apr 11, 2020 Time Seen by Provider: 21:45 Initial Comments Patient presents with complaint of right wrist pain for the past 2 months. Denies any injury or trauma and saw her PCP, Dr. Tierney shortly after the pain began and she was placed in a wrist splint. Patient has not followed up with her doctor as she said he never told her to follow-up. Patient complains of generalized pain in her wrist and forearm worse with certain movements and has continued to wear the splint. Occasionally has some paresthesias in her fingertips without weakness of the RUE Allergies and Home Medications Allergies Coded Allergies: amitriptyline (Verified Allergy, Unknown, 09/30/15) gabapentin (Verified Allergy, Unknown, 09/13/15) pregabalin (Verified Allergy, Unknown, 09/13/15) tramadol (Verified Allergy, Unknown, 09/13/15) ketorolac (Verified Adverse Reaction, Mild, N/V, 09/30/15) iodine (Unverified Adverse Reaction, Unknown, 09/13/15) Home Medications Albuterol Sulfate 8.5 Gm Hfa.aer.ad, 2 PUFF INH Q6H PRN for SHORTNESS OF BREATH, (Reported) Albuterol Sulfate 1 Puff Puff, 2 PUFF IH Q4H 1 PUFF = 90 MCG Prescribed by: DANICA KILGORE on 04/25/192157 Alprazolam 0.5 Mg Tablet, 0.5 MG PO QID PRN for ANXIETY, (Reported) Ascorbate Calcium 500 Mg Tablet, 500 MG PO DAILY, (Reported) Benzonatate 100 Mg Capsule, 100 MG PO Q6H PRN for COUGH Prescribed by: DANICA KILGORE on 04/25/192157 Cefuroxime Axetil 250 Mg Tablet, 250 MG PO BID Prescribed by: CAT MAXWELL on 10/01/15 111 Cholecalciferol (Vitamin D3) 2,000 Unit Tablet, 2,000 UNIT PO DAILY, (Reported) Cranberry Extract 500 Mg Capsule, 500 MG PO DAILY, (Reported) Estradiol 1 Mg Tablet, 1 MG PO DAILY, (Reported) Furosemide 20 Mg Tablet, 20 MG PO DAILY PRN for SWELLING, (Reported) Guaifenesin/Dextromethorphan 1 Each Tab.er.12h, 1 EACH PO BID PRN PRN for CONGESTION Prescribed by: DANICA KILGORE on 04/25/192157 Hydrocodone Bit/Acetaminophen 1 Each Tablet, 1 TAB PO Q4H PRN for PAIN, (Reported) Lamotrigine 100 Mg Tablet, 100 MG PO BID, (Reported) LAST FILLED #60 15 Omeprazole 20 Mg Tablet.dr, 20 MG PO DAILY Prescribed by: CAT MAXWELL on 10/01/15 1041 Oxybutynin Chloride 10 Mg Tab.er.24, 10 MG PO DAILY, (Reported) Polyethylene Glycol 3350 255 Gm Powder, 17 GM PO DAILY PRN for CONSTIPATION, (Reported) Prednisone 20 Mg Tab, 20 MG PO DAILY Prescribed by: DANICA KILGORE on 04/25/192157 Zolpidem Tartrate 10 Mg Tablet, 10 MG PO HS PRN for SLEEP, (Reported) Patient Home Medication List Home Medication List Reviewed: Yes Review of Systems Constitutional: no symptoms reported Musculoskeletal: No back pain; joint pain (R wrist and forearm); No joint swelling; muscle pain, muscle stiffness; No muscle twitching, No muscle weakness Skin: no symptoms reported Psychiatric/Neurological: Denies Numbness; Paresthesia; Denies Weakness Past Julsvoa-Ebnvjw-Xcecvs Hx Past Med/Social Hx: Reviewed Nursing Past Med/Soc Hx Patient Social History Alcohol Use: Denies Use Recreational Drug Use: No Smoking Status: Never a Smoker 2nd Hand Smoke Exposure: No Recent Foreign Travel: No Contact w/Someone Who Travel: No Recent Infectious Disease Expo: No Recent Hopitalizations: No Physical Abuse: No Sexual Abuse: No Immunizations Up To Date PED Vaccines UTD: Yes Date of Influenza Vaccine: Jun 01, 2015 Seasonal Allergies Seasonal Allergies: No Past Medical History Surgeries: Yes Section, Hysterectomy, Orthopedic Respiratory: No Currently Using CPAP: No Currently Using BIPAP: No Cardiac: Yes Chronic Edema/Swelling Neurological: Yes Stroke 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 Disorders: No Female 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 Disorders: Denies Sexually Transmitted Disease: No HIV/AIDS: No Genitourinary: Yes (Right renal cyst) UTI-Chronic Gastrointestinal: Yes Gastroesophageal Reflux, Chronic Constipation, Polyps, Hiatal Hernia Musculoskeletal: Yes Osteoporosis, Fibromyalgia Endocrine: No Loss of Vision: Denies Hearing Impairment: Denies Cancer: No Psychosocial: Yes Anxiety Integumentary: Yes (H/O SHINGLES) Blood Disorders: No Adverse Reaction/Blood Tranf: No Family Medical History Heart Disease Physical Exam Vital Signs Vital Signs - First Documented 04/11/20 21:35 Temp 36.9 Pulse 72 Resp 16 B/P (MAP) 146/76 (99) Pulse Ox 94 O2 Delivery Room Air Capillary Refill : Less Than 3 Seconds Height, Weight, BMI Height: 5'4.00" Weight: 190lbs. 8.0oz. 86.496709pc; 30.00 BMI Method:Stated General Appearance: WD/WN, no apparent distress Neck: non-tender, full range of motion, supple Shoulder: normal inspection, non-tender, no evidence of injury, normal ROM Elbow/Forearm: normal inspection, non-tender, no evidence of injury, normal RO M, Right Wrist: Yes normal inspection, Yes no evidence of injury, Yes normal ROM; No bone tenderness, No deformity; Yes pain (generalized without focal pain), Yes soft tissue tenderness; No swelling Hand: normal inspection, non-tender, no evidence of injury, normal ROM, Right Neurologic/Tendon: normal sensation, normal motor functions, normal tendon functions, no evidence tendon injury Neurologic/Psychiatric: no motor/sensory deficits Skin: normal color, warm/dry Progress/Results/Core Measures Results/Orders My Orders Orders - FATOU HARMON DO Wrist 3 View Right (04/11/20 21:54) Vital Signs/I&O 04/11/20 21:35 Temp 36.9 Pulse 72 Resp 16 B/P (MAP) 146/76 (99) Pulse Ox 94 O2 Delivery Room Air Blood Pressure Mean: 99 Progress Progress Note : Progress Note Pt given a (better) wrist splint Diagnostic Imaging Diagonstic Imaging: Xray Comments R wrist- suspect subacute non-displaced scaphoid fx Reviewed: Reviewed by Me Departure Impression Primary Impression: Scaphoid fracture, wrist, closed Qualified Codes: S62.001D - Unspecified fracture of navicular [scaphoid] bone of right wrist, subsequent encounter for fracture with routine healing Disposition: HOME, SELF-CARE Condition: Stable Departure-Patient Inst. Decision time for Depature: 21:59 Referrals: YISEL TIERNEY MD (PCP) Primary Care Physician CLAYTON MAHER MD Patient Instructions: Wrist Fracture (DC) Add. Discharge Instructions: follow up with Dr Maher in 1 week for re-evaluation of your wrist pain and possible scaphoid bone fracture All discharge instructions reviewed with patient and/or family. Voiced understanding. FATOU HARMON DO Apr 11, 2020 22:00
[2020-04-11 22:15] VITALS: BP 146/76
--- NOTE | 2020-04-12 07:36 | Diagnostic Imaging Report ---
INDICATION: Wrist pain after injury. COMPARISON: None available. TECHNIQUE: 3 views of right wrist were obtained. FINDINGS: No acute or healing fracture. Joint spaces are preserved. No soft tissue gas or radiopaque foreign body. IMPRESSION: No acute fracture about the right wrist. Dictated by: Dictated on workstation # [id number]
--- NOTE | 2020-04-12 09:26 | NUR ---
CALLED PATIENT WITH FINDINGS FROM RADIOLOGY. PT. UNDERSTOOD WHAT WAS TOLD TO HER. PT. STATES THAT HER WRIST IS STILL PAINFUL AND SHE WILL KEEP HER FOLLOW-UP APPOINTMENT WITH ORTHOPEDIST.
== END 2020-04-11 22:15 | disposition home or self-care (01) ==
LOC: EDUNIT# 21:32 → ER FS 21:34
DX: S62.001A Unspecified fracture of navicular [scaphoid] bone of right wrist, initial encounter for closed fracture (principal); F41.9 Anxiety disorder, unspecified; K21.9 Gastro-esophageal reflux disease without esophagitis; K59.09 Other constipation; M79.7 Fibromyalgia; Z88.8 Allergy status to other drugs, medicaments and biological substances; Z88.6 Allergy status to analgesic agent; Z88.5 Allergy status to narcotic agent; Z79.52 Long term (current) use of systemic steroids; Z86.73 Personal history of transient ischemic attack (TIA), and cerebral infarction without residual deficits; Z82.49 Family history of ischemic heart disease and other diseases of the circulatory system; X58.XXXA Exposure to other specified factors, initial encounter
CPT/HCPCS: 73110

== ENCOUNTER 2020-06-16 05:31 | Emergency (ER) | payer MEDICARE ==
[~2020-06-16] VITALS: Ht 162.5 cm; Wt 69.5 kg
--- NOTE | 2020-06-16 05:57 | ED GI ---
General Chief Complaint: Abdominal/GI Problems Stated Complaint: STOMACHE PAIN History of Present Illness Date Seen by Provider: Jun 16, 2020 Time Seen by Provider: 05:45 Initial Comments 65 y/o female presents w nausea and vomiting which began this morning. Associated abdominal cramping. Thinks she ate some bad chicken last night from the grocery store. no fever or chills, no diarrhea or constipation. [place] fine yesterday and before bed last night. Allergies and Home Medications Allergies Coded Allergies: amitriptyline (Verified Allergy, Unknown, 09/30/15) gabapentin (Verified Allergy, Unknown, 09/13/15) pregabalin (Verified Allergy, Unknown, 09/13/15) tramadol (Verified Allergy, Unknown, 09/13/15) ketorolac (Verified Adverse Reaction, Mild, N/V, 09/30/15) iodine (Unverified Adverse Reaction, Unknown, 09/13/15) Home Medications Albuterol Sulfate 8.5 Gm Hfa.aer.ad, 2 PUFF INH Q6H PRN for SHORTNESS OF BREATH, (Reported) Albuterol Sulfate 1 Puff Puff, 2 PUFF IH Q4H 1 PUFF = 90 MCG Prescribed by: DANICA KILGORE on 04/25/192157 Alprazolam 0.5 Mg Tablet, 0.5 MG PO QID PRN for ANXIETY, (Reported) Ascorbate Calcium 500 Mg Tablet, 500 MG PO DAILY, (Reported) Benzonatate 100 Mg Capsule, 100 MG PO Q6H PRN for COUGH Prescribed by: DANICA KILGORE on 04/25/192157 Cefuroxime Axetil 250 Mg Tablet, 250 MG PO BID Prescribed by: CAT MAXWELL on 10/01/15 1113 Cholecalciferol (Vitamin D3) 2,000 Unit Tablet, 2,000 UNIT PO DAILY, (Reported) Cranberry Extract 500 Mg Capsule, 500 MG PO DAILY, (Reported) Estradiol 1 Mg Tablet, 1 MG PO DAILY, (Reported) Furosemide 20 Mg Tablet, 20 MG PO DAILY PRN for SWELLING, (Reported) Guaifenesin/Dextromethorphan 1 Each Tab.er.12h, 1 EACH PO BID PRN PRN for CONGESTION Prescribed by: DANICA KILGORE on 04/25/192157 Hydrocodone Bit/Acetaminophen 1 Each Tablet, 1 TAB PO Q4H PRN for PAIN, (Reported) Hyoscyamine Sulfate 0.125 Mg Tab.subl, 0.125 MG SL Q4H Prescribed by: FATOU HARMON on 06/16/20 06 Lamotrigine 100 Mg Tablet, 100 MG PO BID, (Reported) LAST FILLED #60 06-15-15 Omeprazole 20 Mg Tablet.dr, 20 MG PO DAILY Prescribed by: CAT MAXWELL on 10/01/15 1041 Ondansetron 4 Mg Tab.rapdis, 4 MG PO TID Prescribed by: FATOU HARMON on 06/16/20 06 Oxybutynin Chloride 10 Mg Tab.er.24, 10 MG PO DAILY, (Reported) Polyethylene Glycol 3350 255 Gm Powder, 17 GM PO DAILY PRN for CONSTIPATION, (Reported) Prednisone 20 Mg Tab, 20 MG PO DAILY Prescribed by: DANICA KILGORE on 04/25/192157 Zolpidem Tartrate 10 Mg Tablet, 10 MG PO HS PRN for SLEEP, (Reported) Patient Home Medication List Home Medication List Reviewed: Yes Review of Systems Review of Systems Constitutional: No chills, No fever; malaise Respiratory: Denies Cough, Denies Shortness of Air Cardiovascular: Denies Chest Pain, Denies Edema Gastrointestinal: See HPI, Abdominal Pain; Denies Constipated, Denies Diarrhea; Nausea, Vomiting Musculoskeletal: No back pain, No joint pain Skin: No change in color, No rash Past Jfjanbg-Lljiuh-Bskurs Hx Past Med/Social Hx: Reviewed Nursing Past Med/Soc Hx Patient Social History 2nd Hand Smoke Exposure: No Recent Foreign Travel: No Contact w/Someone Who Travel: No Recent Hopitalizations: No Physical Abuse: No Sexual Abuse: No Immunizations Up To Date PED Vaccines UTD: Yes Date of Influenza Vaccine: Jun 01, 2015 Seasonal Allergies Seasonal Allergies: No Past Medical History Surgeries: Yes Section, Hysterectomy, Orthopedic Respiratory: No Currently Using CPAP: No Currently Using BIPAP: No Cardiac: Yes Chronic Edema/Swelling Neurological: Yes Stroke 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 Disorders: No Female 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 Sexually Transmitted Disease: No HIV/AIDS: No Genitourinary: Yes (Right renal cyst) UTI-Chronic Gastrointestinal: Yes Gastroesophageal Reflux, Chronic Constipation, Polyps, Hiatal Hernia Musculoskeletal: Yes Osteoporosis, Arthritis, Fibromyalgia Endocrine: No HEENT: No Loss of Vision: Denies Hearing Impairment: Denies Cancer: No Psychosocial: Yes Anxiety Integumentary: Yes (H/O SHINGLES) Blood Disorders: No Adverse Reaction/Blood Tranf: No Family Medical History Heart Disease Physical Exam Vital Signs Vital Signs - First Documented 06/16/20 05:35 Temp 36.4 Pulse 79 Resp 18 B/P (MAP) 153/78 (103) Pulse Ox 95 O2 Delivery Room Air Capillary Refill : Height/Weight/BMI Height: 5'4.00" Weight: 190lbs. 8.0oz. 86.058257gb; 30.00 BMI Method:Stated General Appearance: WD/WN, no apparent distress Respiratory: chest non-tender, lungs clear Cardiovascular: regular rate, rhythm, no edema Gastrointestinal: soft; No guarding, No rebound; tenderness (diffuse , non- localized); No hernia, No mass, No hepatomegaly, No spleenomegaly Back: normal inspection, no CVA tenderness Skin: normal color, warm/dry Progress/Results/Core Measures Results/Orders Lab Results Laboratory Tests Test 06/16/20 06:01 Range/Units White Blood Count 9.7 4.3-11.0 10^3/uL Red Blood Count 3.75 L 4.35-5.85 10^6/uL Hemoglobin 11.4 L 11.5-16.0 G/DL Hematocrit 36 35-52 % Mean Corpuscular Volume 95 80-99 FL Mean Corpuscular Hemoglobin 30 25-34 PG Mean Corpuscular Hemoglobin Concent 32 32-36 G/DL Red Cell Distribution Width 12.9 10.0-14.5 % Platelet Count 282 130-400 10^3/uL Mean Platelet Volume 8.5 7.4-10.4 FL Immature Granulocyte % (Auto) 1 % Neutrophils (%) (Auto) 68 42-75 % Lymphocytes (%) (Auto) 23 12-44 % Monocytes (%) (Auto) 8 0-12 % Eosinophils (%) (Auto) 1 0-10 % Basophils (%) (Auto) 0 0-10 % Neutrophils # (Auto) 6.5 1.8-7.8 X 10^3 Lymphocytes # (Auto) 2.2 1.0-4.0 X 10^3 Monocytes # (Auto) 0.7 0.0-1.0 X 10^3 Eosinophils # (Auto) 0.1 0.0-0.3 10^3/uL Basophils # (Auto) 0.0 0.0-0.1 10^3/uL Immature Granulocyte # (Auto) 0.1 0.0-0.1 10^3/uL Sodium Level 134 L 135-145 MMOL/L Potassium Level 3.4 L 3.6-5.0 MMOL/L Chloride Level 98 98-107 MMOL/L Carbon Dioxide Level 27 21-32 MMOL/L Anion Gap 9 5-14 MMOL/L Blood Urea Nitrogen 17 7-18 MG/DL Creatinine 0.96 0.60-1.30 MG/DL Estimat Glomerular Filtration Rate > 60 BUN/Creatinine Ratio 18 Glucose Level 148 H 70-105 MG/DL Calcium Level 9.5 8.5-10.1 MG/DL Corrected Calcium 9.3 8.5-10.1 MG/DL Total Bilirubin 0.8 0.1-1.0 MG/DL Aspartate Amino Transf (AST/SGOT) 142 H 5-34 U/L Alanine Aminotransferase (ALT/SGPT) 43 0-55 U/L Alkaline Phosphatase 68 40-136 U/L Total Protein 7.2 6.4-8.2 GM/DL Albumin 4.3 3.2-4.5 GM/DL My Orders Orders - ROVENSTINEFATOU DO Ed Iv/Invasive Line Start (06/16/20 05:49) Abdomen (Kub) 1 View (06/16/20 05:49) Cbc With Automated Diff (06/16/20 05:49) Comprehensive Metabolic Panel (06/16/20 05:49) Ns Iv 1000 Ml (Sodium Chloride 0.9%) (06/16/20 06:00) Ondansetron Injection (Zofran Injectio (06/16/20 06:00) Famotidine Injection (Pepcid Injection) (06/16/20 06:15) Dicyclomine Injection (Bentyl Injection) (06/16/20 06:38) Medications Given in ED Vital Signs/I&O 06/16/20 06/16/20 05:35 07:18 Temp 36.4 Pulse 79 87 Resp 18 16 B/P (MAP) 153/78 (103) 117/68 Pulse Ox 95 96 O2 Delivery Room Air Room Air Diagnostic Imaging Diagonstic Imaging: Xray Plain Films/CT/US/NM/MRI: abdomen Comments non-specific BGP, without obstruction Reviewed: Reviewed by Me Departure Impression Primary Impression: Nausea and vomiting Qualified Codes: R11.2 - Nausea with vomiting, unspecified Disposition: 01 HOME, SELF-CARE Condition: Improved Departure-Patient Inst. Decision time for Depature: 06:55 Referrals: YISEL TIERNEY MD (PCP/Family) Primary Care Physician Patient Instructions: CLEAR LIQUID DIET ADULT/CHILD, Nausea and Vomiting, Adult, Severe Abdominal Pain, Adult (DC) Add. Discharge Instructions: Follow up with Dr Tierney in 1 to 2 days if not improving, ER sooner if significantly worse. Take the nausea medicine prescribed as needed. Do not eat any solid foods, you are advised to only have clear liquids until your pain subsides. All discharge instructions reviewed with patient and/or family. Voiced understanding. Scripts Ondansetron (Ondansetron Odt) 4 Mg Tab.rapdis 4 MG PO TID for Nausea, #12 TAB Prov: FATOU HARMON DO 06/16/20 Hyoscyamine Sulfate (Levsin-Sl) 0.125 Mg Tab.subl 0.125 MG SL Q4H, #12 TAB 0 Refills Prov: FATOU HARMON DO 06/16/20 FATOU HARMON DO Jun 16, 2020 05:57
[2020-06-16] MEDS ORDERED: NS IV 1000 ML 1,000 ML IV SCH (06:00)
[2020-06-16] MEDS ORDERED: ONDANSETRON 4 MG/2 ML (SDV) Z0FRAN IVP ONE (06:00)
[2020-06-16 06:08] LABS: BASOPHILS % (AUTO) 0 % (0-10); EOSINOPHILS % (AUTO) 1 % (0-10); HEMATOCRIT 36 % (35-52); HEMOGLOBIN 11.4 G/DL (11.5-16.0); LYMPHOCYTES % (AUTO) 23 % (12-44); MEAN CORPUSCULAR HEMOGLOBIN 30 PG (25-34); MEAN CORPUSCULAR HGB CONC 32 G/DL (32-36); MEAN CORPUSCULAR VOLUME 95 FL (80-99); MEAN PLATELET VOLUME 8.5 FL (7.4-10.4); MONOCYTES % (AUTO) 8 % (0-12); NEUTROPHILS # (AUTO) 6.5 X 10^3 (1.8-7.8); NEUTROPHILS % (AUTO) 68 % (42-75); PLATELET COUNT 282 10^3/uL (130-400); WHITE BLOOD COUNT 9.7 10^3/uL (4.3-11.0)
[2020-06-16 06:09] LABS: EOSINOPHILS # (AUTO) 0.1 10^3/uL (0.0-0.3); LYMPHOCYTES # (AUTO) 2.2 X 10^3 (1.0-4.0); MONOCYTES # (AUTO) 0.7 X 10^3 (0.0-1.0)
[2020-06-16] MEDS ORDERED: FAMOTIDINE 20MG/2ML IV (PEPCID) IVP ONE (06:15)
--- NOTE | 2020-06-16 06:21 | NUR ---
Pt back from xray, warm blanket for comfort.
[2020-06-16 06:26] LABS: ALANINE AMINOTRANSFERASE 43 U/L (0-55); ALBUMIN 4.3 GM/DL (3.2-4.5); ALKALINE PHOSPHATASE 68 U/L (40-136); BILIRUBIN,TOTAL 0.8 MG/DL (0.1-1.0); BUN/CREATININE RATIO 18; CALCIUM 9.5 MG/DL (8.5-10.1); CARBON DIOXIDE 27 MMOL/L (21-32); CHLORIDE 98 MMOL/L (98-107); CREATININE SERUM 0.96 MG/DL (0.60-1.30); GFR ESTIMATED > 60; GLUCOSE 148 MG/DL (70-105); POTASSIUM 3.4 MMOL/L (3.6-5.0); SODIUM 134 MMOL/L (135-145); TOTAL PROTEIN 7.2 GM/DL (6.4-8.2)
--- NOTE | 2020-06-16 06:32 | NUR ---
Pt yelling that her pain is not any better, but does not want pain meds, just the pain to stop.
[2020-06-16] MEDS ORDERED: DICYCLOMINE 10 MG/ML (BENTYL) 2 ML AMP IM STA (06:38)
--- NOTE | 2020-06-16 06:50 | NUR ---
Warm blanket and positioning for comfort.
[2020-06-16] MEDS ORDERED: HYOS0.1283 SL (06:58)
[2020-06-16] MEDS ORDERED: ONDA4TAB11 PO (06:58)
[2020-06-16 07:18] VITALS: BP 117/68
--- NOTE | 2020-06-16 07:27 | Diagnostic Imaging Report ---
INDICATION: Diffuse abdominal cramping with nausea and vomiting. FINDINGS: Supine view of the abdomen demonstrates unremarkable bowel gas pattern. Benign calcifications are seen in the left pelvis. Scoliosis is present. Lung bases are clear. IMPRESSION: The bowel gas pattern appears unremarkable. Questionable mild constipation. Dictated by: Dictated on workstation # [id number]
== END 2020-06-16 07:15 | disposition home or self-care (01) ==
LOC: EDUNIT# 05:31 → ER FS 05:35
DX: R11.2 Nausea with vomiting, unspecified (principal); F41.9 Anxiety disorder, unspecified; K21.9 Gastro-esophageal reflux disease without esophagitis; Z82.49 Family history of ischemic heart disease and other diseases of the circulatory system; Z88.5 Allergy status to narcotic agent; Z91.041 Radiographic dye allergy status; Z88.8 Allergy status to other drugs, medicaments and biological substances; Z79.52 Long term (current) use of systemic steroids
CPT/HCPCS: 36415; 74018; 80053; 85025

== ENCOUNTER 2021-02-27 10:46 | Emergency (ER) | payer MEDICARE ==
[~2021-02-27] VITALS: Ht 160 cm; Wt 79.0 kg
[~2021-02-27 10:46] MED LIST changes: +HYOS0.1283 SL; +ONDA4TAB11 PO
--- OUTSIDE RECORDS SUMMARY | 2021-02-27 10:54 | XMS REPORT | Clinical Summary ---
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 If you d o not see the information that you expected, contact Release of Information in [facility] Information Management department at [phone] for further assistan ce in locating additional records.[facility] Allergies Comments Active Allergy Reactions Severity Noted Date Amitriptyline HALLUCINATION 09/21/2011 S Coconut HIVES 11/09/2012 Duloxetine HIVES 09/21/2011 Fentanyl NAUSEA AND 10/27/2013 VOMITING Convulsions Iodine SEE COMMENTS 11/09/2012 Pregabalin HALLUCINATION 09/21/2011 S Chest pain Gabapentin SEE COMMENTS 09/21/2011 Chest pains Gabapentin SEE COMMENTS 11/09/2012 Red velvet cake - lip swelling Unclassified Drug EDEMA 11/09/2012 Fluoxetine HALLUCINATION 11/09/2012 S Milnacipran ANAPHYLAXIS 09/21/2011 Ketorolac NAUSEA AND 11/09/2012 VOMITING Tramadol HIVES 09/21/2011 Medications End Date Status Medication Sig Dispensed Refills Start Date Active zolpidem (AMBIEN) 10 mg Take 10 mg by 0 tablet mouth at bedtime daily. Active LAMOTRIGINE (LAMICTAL PO) Take by 0 mouth. 100 mg AM- 150mg HS Active ALPRAZolam (XANAX) 0.5 mg Take 0.5 mg 0 tablet by mouth four times daily. Active HYDROcodone-acetaminophen Take 1 Tab by 30 Tab 0 (+) (VICODIN) 10-325 mg mouth every 4 3 tabletIndications: Spinal hours as stenosis needed. Active cholecalciferol (Vitamin Take 2,000 0 D3) (VITAMIN D-3) 1,000 Units by units tablet mouth daily. Active PROAIR HFA 90 INHALE 2 8.5 g 3 mcg/actuation inhaler PUFFS BY 4 MOUTH EVERY 6 HOURS NEEDED. Active furosemide (LASIX) 20 mg TAKE ONE 90 Tab 1 0 tablet TABLET BY 4 MOUTH DAILY Active polyethylene glycol 3350 TAKE 17 GRAMS 510 g 3 (GLYCOLAX; MIRALAX) 17 (1 SCOOP) BY 4 gram/dose powder MOUTH DAILY. Active estradiol (ESTRACE) 1 mg TAKE ONE 90 Tab 0 0 tablet TABLET BY 4 MOUTH DAILY Active omeprazole DR(+) Take 1 Cap by 60 Cap 6 02/23/ 01 (PRILOSEC) 40 mg capsule mouth twice 4 daily. Additional Information Patient taking differently: 40 mg Oral DAILY, Reported on 11/28/2015 Active oxycodone(+) (ROXICODONE, Take 10 mg by 0 OXY-IR) 10 mg tablet mouth every 6 hours as needed for Pain Active IRON/VIT B COMP/LIVER Take by 0 EXTRACT mouth. ([id number] PO) Active ERGOCALCIFEROL (VITAMIN Take 1,000 0 D2) (VITAMIN D PO) Units by mouth daily. Active ergocalciferol (VITAMIN Take 1 Cap by 4 Cap 3 D-2) 50,000 unit capsule mouth every 7 6 days. X 12 wks then add vitamin D OTC 2000 units daily Active Problems Problem Noted Date Popliteal fullness 08/27/2016 Overview: Formatting of this note might be differ ent from the original. Nonpulsitile Obesity, Class I, BMI 30-34.9 08/27/2016 Vitamin D deficiency 05/22/2016 Synovial cyst of right popliteal space 11/28/2015 Muscle weakness of lower extremity 11/28/2015 Joint pain 05/12/2013 Encounter for long-term current use of medication H/O long-term treatment with high-risk medication Generalized osteoarthritis 02/23/2013 Inflammatory arthritis 02/23/2013 Overview: Formatting of this note might be differ ent from the original. Intolerant of plaquenil and sulfasalazi ne Spinal stenosis 01/31/2013 Last Assessment & Plan: Formatting of this note might be differ ent from the original. Longstanding history with rx medication s, injections, and surgical referral. She says that the surgeon sta kendra she could have surgery but did not recommend it. Instead, the surgeon recommended she continue to have her pain managed with medications. She has had some relief with hydrocodone-apap 10-325 mg prescribed b y her prior PCP. I recommended she establish care with a chronic pain specialist. Referral entered. Right groin pain 01/17/2013 Last Assessment & Plan: Formatting of this note might be differ ent from the original. History given by the patient of an ultr asound and CT scan of this area to investigate some palpable lumps. Appare ntly the scans showed enlarged lymph nodes. On exam today, I do not feel any signif icantly large or abnormal lymph nodes or masses in this area. I asked her to drop off a copy of the r esults or arrange for a copy of the results to be sent to me. After I have reviewed the results, I should be able to order any further workup or con sultation necessary. Fibromyalgia 11/18/2012 Bipolar disorder 11/18/2012 Joint swelling 12/27/2011 Fibromyalgia 12/27/2011 Immunizations Name Administration Dates Next Due Pneumococcal Vaccine 07/05/2011 (23-Charmaine Adult) Surgical History Surgery Date Site/Laterality Comments HYSTERECTOMY 1988 With unilateral oop herectomy SECTION 1971, 73, 75, 76, 78, 80 KNEE ARTHROSCOPY 1996 right HX HYSTERECTOMY partial HERNIA REPAIR HX KNEE SURGERY left knee Medical History Medical History Date Comments Measles Mumps Hand swelling Bilateral swelling of feet Chickenpox DJD (degenerative joint disease) Osteoarthritis Stenosis Bulging disc Pneumonia Sciatica Anemia History of emotional problems Nervous breakdown Hay fever SOB (shortness of breath) Wheezing Difficulty sleeping Encounter for eye exam 2010 Candace History of bone density study 2010 BRANNON Feng Other malaise and fatigue Unspecified disorder of muscle, ligament, and fascia Fibromyalgia Spinal stenosis TIA (transient ischemic attack) Ulcer Family History Medical History Relation Name Comments Cancer Brother lymphoma Hypertension Brother Hypertension Brother Asthma Brother Arthritis Father Liver Disease Father Seizures Father Cancer Maternal Aunt lymphoma Arthritis Maternal Grandfather Arthritis Maternal Grandmother Arthritis Mother COPD Mother Heart Failure Mother Hypertension Mother Stroke Mother Diabetes Paternal Aunt Arthritis Paternal Grandfather Arthritis Paternal Grandmother Cancer Paternal Uncle Cancer Sister breast, ovarian Heart problem Sister Hypertension Sister Hypertension Sister Asthma Sister Stroke Sister Relation Name Status Comments Brother Alive Brother Alive Brother Alive Brother Brother Brother Brother Father (Age 42) Half Brother lymphoma (Age 48) Half Sister Alive Half Sister Alive Maternal Aunt Maternal Grandfather Maternal Grandmother Mother CHF, COPD (Age 84) Paternal Aunt Paternal Grandfather Paternal Grandmother Paternal Uncle Sister Alive Sister Alive Sister Alive Sister Sister Sister Sister Sister Sister Social History Date Tobacco Use Types Packs/Day Years Used Quit: 10/22/2014 Former Smoker Cigarettes 0.3 Smokeless Tobacco: Never Used Tobacco Cessation: Ready to Quit: No Comments: 5 cigs a day Comments Alcohol Use Standard Drinks/Week No 0 (1 standard drink = 0.6 o z pure alcohol) Sex Assigned at Date Recorded Not on file Last Filed Vital Signs Reading Time Taken Comments Vital Sign 106/78 02/16/2017 2:31 PM CDT Blood Pressure 74 02/16/2017 2:31 PM CDT Pulse 36.7 C (98.1 F) 02/16/2017 2:31 PM CDT Temperature 18 10/22/2016 2:23 PM CDT Respiratory Rate 98% 05/22/2016 2:59 PM DOCUMENT SPECIALIST RA Oxygen Saturation - - Inhaled Oxygen Concentration 87.8 kg (193 lb 9.6 oz) 02/16/2017 2:31 PM CDT Weight 160 cm (5' 3") 02/16/2017 2:31 PM CDT Height 34.29 02/16/2017 2:31 PM CDT Body Mass Index Plan of Treatment Health Maintenance Due Date Last Done Comments MEDICARE ANNUAL WELLNESS 1955 VISIT DTAP/TDAP VACCINES (1 - 1973 Tdap) SHINGLES RECOMBINANT 2005 VACCINE (1 of 2) BREAST CANCER SCREENING 07/05/2013 07/05/2012 PHYSICAL (COMPREHENSIVE) 07/05/2013 07/05/2012 EXAM OSTEOPOROSIS 02/10/2020 SCREENING/MONITORING PNEUMONIA (PPSV23) 02/10/2020 07/05/2011 VACCINE (1 of 1 - PPSV23) COLORECTAL CANCER 07/05/2020 07/05/2010 SCREENING INFLUENZA VACCINE 04/04/2021 04/04/2009 HEPATITIS C SCREENING Completed 07/06/2014 Results Not on filefrom Last 3 Months Insurance Type Payer Benefit Subscriber ID Effective Phone Address Plan / Dates Group Medicare MEDICARE MEDICARE [id number] 2011-P PART A AND resent B [phone] Advance Directives Patient Research Professor Explanation Type Date Recorded Advance 10/16/2014 7:54 AM Directive/DPOA Advance 07/12/2013 10:20 AM Directive/DPOA Advance Directives 12/29/2012 4:06 PM and Living Will Advance Directives 11/09/2012 3:09 PM and Living Will Advance Directives 11/04/2012 4:46 PM and Living Will
--- OUTSIDE RECORDS SUMMARY | 2021-02-27 10:54 | XMS REPORT | Clinical Summary ---
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 Active zolpidem tartrate (AMBIEN Take by 0 ORAL) mouth. Active alprazolam (XANAX ORAL) Take by 0 mouth. Active lamotrigine (LAMICTAL Take by 0 ORAL) mouth. Active BISOPROLOL FUMARATE ORAL Take by 0 mouth. Active oxycodone HCl (OXYCODONE Take by 0 ORAL) mouth. Active B cmplx 4/vit Take by 0 D3/C/folic/zinc (VITAL-D mouth. RX ORAL) Active Problems Not on file Social History Date Tobacco Use Types Packs/Day Years Used Unknown If Ever Smoked Comments Alcohol Use Standard Drinks/Week No 0 (1 standard drink = 0.6 o z pure alcohol) Sex Assigned at Date Recorded Not on file Last Filed Vital Signs Not on file Plan of Treatment Health Maintenance Due Date Last Done Comments Advance Directive has 1955 been filed Hepatitis C Screen 1955 Medicare Annual Wellness 1955 Td/Tdap# 1955 COVID-19 Vaccine (1) 1967 Colorectal Screening via 2005 Colonoscopy Mammogram Screening 2005 Zoster Vaccine# (1 of 2) 2005 Advance Directive 02/10/2020 Conversation Depression Screening 02/10/2020 PHQ-9 # Fall Risk Assessment # 02/10/2020 02/24/2018 Osteoporosis Screening 02/10/2020 Patient Needs Advance 02/10/2020 Directive Pneumococcal Vaccine: 65+ 02/10/2020 07/05/2011 Years (1 of 1 - PPSV23) Influenza Vaccine (#1) 2021 Results Not on filefrom Last 3 Months Insurance Type Payer Benefit Subscriber ID Effective Phone Address Plan / Dates Group Medicare MEDICARE MEDICARE [id number] 2011-P [place] PART A B [facility] [place] Catarina Connolly Personal/F Self 1955 [address] [place] [address] Catarina Connolly Personal/F Self 1955 [address] [place] [address] Advance Directives For more information, please contact: [phone] Patient Vp Director Of Creative Strategy Explanation Type Date Recorded Health Care Directive
[2021-02-27] MEDS ORDERED: KETOROLAC 60 MG/2 ML VIAL IM STA (11:13)
[2021-02-27] MEDS ORDERED: ORPHENADRINE 60 MG/2 ML (NORFLEX) AMP (ED ONLY) IM STA (11:13)
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
--- NOTE | 2021-02-27 11:54 | Diagnostic Imaging Report ---
INDICATION: Neck stiffness. TIME OF EXAM: 11:36 AM Curvature and alignment of the cervical spine is normal. There is multilevel degenerative disc disease with variable disc space narrowing and marginal spurring, greatest at C4-C5, C5-C6 and C6-C7 levels. Prevertebral tissues are normal. No fractures are identified. Odontoid appears intact. IMPRESSION: Cervical spondylosis. No acute bony abnormality is detected. Dictated by: Dictated on workstation # [id number]
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
[2021-02-27] MEDS ORDERED: CYCL10TA9 PO (12:07)
[2021-02-27] MEDS ORDERED: NAPR-1071 PO (12:07)
[2021-02-27 12:10] VITALS: BP 142/86
== END 2021-02-27 12:12 | disposition home or self-care (01) ==
LOC: EDUNIT# 10:46 → ER FS 10:49
DX: S16.1XXA Strain of muscle, fascia and tendon at neck level, initial encounter (principal); S39.011A Strain of muscle, fascia and tendon of abdomen, initial encounter; K21.9 Gastro-esophageal reflux disease without esophagitis; F41.9 Anxiety disorder, unspecified; Z86.73 Personal history of transient ischemic attack (TIA), and cerebral infarction without residual deficits; Z79.899 Other long term (current) drug therapy; Z79.52 Long term (current) use of systemic steroids; V89.2XXA Person injured in unspecified motor-vehicle accident, traffic, initial encounter
CPT/HCPCS: 72040; 73521

== ENCOUNTER → 2021-03-06 | Outpatient (CLI) | payer MEDICARE ==
[~2021-03-06] MED LIST changes: +CYCL10TA9 PO; +NAPR-1071 PO
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
== END ==
LOC: RAD FS 09:42
PROVIDERS: ATTEND Nurse Practitioner Family
DX: N28.1 Cyst of kidney, acquired (principal)
CPT/HCPCS: 74176

== ENCOUNTER 2023-02-21 15:48 | Emergency (ER) | payer MEDICARE, MEDICAID ==
[~2023-02-21] VITALS: Ht 160 cm; Wt 77.1 kg
[~2023-02-21 15:48] MED LIST changes: +ALBU8.5H6 IH; +ALBU8.5H6 INH; +CYCL10TA25 PO; -CYCL10TA9 PO; +OMEP20TA56 PO; -OMEP20TA7 PO; -RT-ALBUINH IH; -RT-ALBUINH INH
--- NOTE | 2023-02-21 16:02 | ED GU-Female ---
General Chief Complaint: - 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 Stated Complaint: POSSIBLE UTI Source: patient Exam Limitations: no limitations History of Present Illness Date Seen by Provider: Feb 21, 2023 Time Seen by Provider: 15:47 Initial Comments 68-year-old female presents for dysuria, increased frequency of urination. Symptoms started in the last couple of days. She did take Macrobid for UTI couple of weeks ago but does not feel like it ever completely cleared up. She d enies any fevers or chills. No nausea or vomiting. All other systems reviewed and negative except documented per HPI. Voice recognition software was used to help create this chart Allergies and Home Medications Allergies Coded Allergies: amitriptyline (Verified Allergy, Unknown, 09/30/15) gabapentin (Verified Allergy, Unknown, 09/13/15) pregabalin (Verified Allergy, Unknown, 09/13/15) tramadol (Verified Allergy, Unknown, 09/13/15) ketorolac (Verified Adverse Reaction, Mild, N/V, 09/30/15) iodine (Unverified Adverse Reaction, Unknown, 09/13/15) Patient Home Medication List Home Medication List Reviewed: Yes Albuterol Sulfate (Ventolin Hfa) 8.5 Gm Hfa.aer.ad, 2 PUFF INH Q6H PRN for SHORTNESS OF BREATH, (Reported) Entered as Reported by: MELISSA CASTANEDA on 10/01/15 0925 Albuterol Sulfate (Ventolin Hfa) 1 Puff Puff, 2 PUFF IH Q4H Prescribed by: DANICA KILGORE on 04/25/192157 Alprazolam (Alprazolam) 0.5 Mg Tablet, 0.5 MG PO QID PRN for ANXIETY, (Reported) Entered as Reported by: MELISSA CASTANEDA on 10/01/15 0854 Ascorbate Calcium (Vitamin C) 500 Mg Tablet, 500 MG PO DAILY, (Reported) Entered as Reported by: MELISSA CASTANEDA on 10/01/15 0926 Benzonatate (Tessalon Perles) 100 Mg Capsule, 100 MG PO Q6H PRN for COUGH Prescribed by: DANICA KILGORE on 04/25/192157 Cefuroxime Axetil (Ceftin) 250 Mg Tablet, 250 MG PO BID Prescribed by: CAT MAXWELL on 10/01/15 1113 Cholecalciferol (Vitamin D3) (Vitamin D-3) 2,000 Unit Tablet, 2,000 UNIT PO DAILY, (Reported) Entered as Reported by: MELISSA CASTANEDA on 10/01/15 09 Cranberry Extract (Cranberry) 500 Mg Capsule, 500 MG PO DAILY, (Reported) Entered as Reported by: MELISSA CASTANEDA on 10/01/15 09 Cyclobenzaprine HCl (Cyclobenzaprine HCl) 10 Mg Tablet, 10 MG PO Q8H PRN for SPASMS Prescribed by: LAURO FLYNN on 02/27/21 120 Estradiol (Estradiol Tablet) 1 Mg Tablet, 1 MG PO DAILY, (Reported) Entered as Reported by: MELISSA CASTANEDA on 10/01/15 0854 Furosemide (Furosemide) 20 Mg Tablet, 20 MG PO DAILY PRN for SWELLING, (Reported) Entered as Reported by: MELISSA CASTANEDA on 10/01/15 09 Guaifenesin/Dextromethorphan (Mucinex Dm ER 600-30 mg Tablet) 1 Each Tab.er.12h, 1 EACH PO BID PRN PRN for CONGESTION Prescribed by: DANICA KILGORE on 04/25/192157 Hydrocodone Bit/Acetaminophen (HYDROcodone/APAP 10/325 TABLET) 1 Each Tablet, 1 TAB PO Q4H PRN for PAIN, (Reported) Entered as Reported by: SACHI MACK on 09/13/151952 Hyoscyamine Sulfate (Levsin-Sl) 0.125 Mg Tab.subl, 0.125 MG SL Q4H Prescribed by: FATOU SHORTSTSTEPHY on 06/16/20 06 Lamotrigine (Lamotrigine) 100 Mg Tablet, 100 MG PO BID, (Reported) Entered as Reported by: MELISSA CASTANEDA on 10/01/15 09 Naproxen (Naprosyn) 500 Mg Tablet, 500 MG PO BID Prescribed by: LAURO FLYNN on 02/27/21 120 Omeprazole (Omeprazole) 20 Mg Tablet.dr, 20 MG PO DAILY Prescribed by: CAT MAXWELL on 10/01/15 1041 Ondansetron (Ondansetron Odt) 4 Mg Tab.rapdis, 4 MG PO TID Prescribed by: FATOU HARMON on 06/16/20 06 Oxybutynin Chloride (Oxybutynin Chloride ER) 10 Mg Tab.er.24, 10 MG PO DAILY, (Reported) Entered as Reported by: DAVID RIVAS on 09/30/15 1803 Polyethylene Glycol 3350 (Polyethylene Glycol 3350) 255 Gm Powder, 17 GM PO DAILY PRN for CONSTIPATION, (Reported) Entered as Reported by: MELISSA CASTANEDA on 10/01/15 0925 Prednisone (Prednisone) 20 Mg Tab, 20 MG PO DAILY Prescribed by: DANICA KILGORE on 04/25/19 215 Zolpidem Tartrate (Zolpidem Tartrate) 10 Mg Tablet, 10 MG PO HS PRN for SLEEP, (Reported) Entered as Reported by: MELISSA CASTANEDA on 10/01/15 0854 Review of Systems Review of Systems Constitutional: see HPI Past Cbeumeh-Niniqy-Ibqmdv Hx Patient Social History Tobacco Use?: No Use of E-Cig and/or Vaping dev: No Substance use?: No Alcohol Use?: No Immunizations Up To Date PED Vaccines UTD: Yes Seasonal Allergies Seasonal Allergies: No Past Medical History Surgeries: Yes Section, Hysterectomy, Orthopedic Respiratory: No Currently Using CPAP: No Currently Using BIPAP: No Cardiac: Yes Chronic Edema/Swelling Neurological: Yes Stroke 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 Disorders: No Female 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 Disorders: Denies [employer] History: Hysterectomy Sexually Transmitted Disease: No HIV/AIDS: No Genitourinary: Yes (Right renal cyst) UTI-Chronic Gastrointestinal: Yes Gastroesophageal Reflux, Chronic Constipation, Polyps, Hiatal Hernia Musculoskeletal: Yes Osteoporosis, Arthritis, Fibromyalgia Endocrine: No HEENT: No Loss of Vision: Denies Hearing Impairment: Denies Cancer: No Psychosocial: Yes Anxiety Integumentary: Yes (H/O SHINGLES) Blood Disorders: No Adverse Reaction/Blood Tranf: No Family Medical History Heart Disease Physical Exam Vital Signs Vital Signs - First Documented 02/21/23 16:03 Temp 36.9 Pulse 77 Resp 16 B/P (MAP) 136/77 (96) Pulse Ox 98 O2 Delivery Room Air Capillary Refill : Height, Weight, BMI Height: 5'4.00" Weight: 190lbs. 8.0oz. 86.990588et; 30.00 BMI Method:Stated General Appearance: WD/WN, no apparent distress HEENT: normal ENT inspection, pharynx normal Neck: non-tender, full range of motion, supple, normal inspection Cardiovascular: regular rate, rhythm, no murmur Respiratory: chest non-tender, lungs clear, normal breath sounds, no respiratory distress, no accessory muscle use Gastrointestinal: normal bowel sounds, non tender, soft Neurologic/Psychiatric: alert, oriented x 3 Skin: normal color, warm/dry Progress/Results/Core Measures Suspected Sepsis SIRS Temperature: Pulse: Respiratory Rate: Blood Pressure / Mean: Results/Orders Lab Results Laboratory Tests Test 02/21/23 15:50 Range/Units Urine Color YELLOW Urine Clarity CLOUDY Urine pH 5.5 5-9 Urine Specific [place] >=1.030 1.016-1.022 Urine Protein 3+ H NEGATIVE Urine Glucose (UA) TRACE H NEGATIVE Urine Ketones TRACE H NEGATIVE Urine Nitrite NEGATIVE NEGATIVE Urine Bilirubin 1+ H NEGATIVE Urine Urobilinogen 1.0 < = 1.0 MG/DL Urine Leukocyte Esterase 2+ H NEGATIVE Urine RBC (Auto) 3+ H NEGATIVE Urine RBC 5-10 H /HPF Urine WBC >100 H /HPF Urine Squamous Epithelial Cells 5-10 /HPF Urine Crystals NONE /LPF Urine Bacteria LARGE H /HPF Urine Casts NONE /LPF Urine Mucus LARGE H /LPF Urine Culture Indicated YES My Orders Orders - KARTHIK TOLEDO DO Ua Culture If Indicated (02/21/23 15:52) Urine Culture (02/21/23 15:50) Vital Signs/I&O 02/21/23 16:03 Temp 36.9 Pulse 77 Resp 16 B/P (MAP) 136/77 (96) Pulse Ox 98 O2 Delivery Room Air Capillary Refill : Departure Impression Primary Impression: Urinary tract infection Qualified Codes: N30.01 - Acute cystitis with hematuria Disposition: HOME, SELF-CARE Condition: Stable Departure-Patient Inst. Referrals: YISEL BLACKMON MD (PCP/Family) Primary Care Physician Patient Instructions: Urinary Tract Infection, Adult (DC) Add. Discharge Instructions: Stop taking the Macrobid and start taking the new antibiotics as discussed. Return to the emergency department for any severe concerns. Follow-up with your primary doctor for any nonemergent needs All discharge instructions reviewed with patient and/or family. Voiced understanding. Scripts Cephalexin (Cephalexin) 500 Mg Tablet 500 MG PO TID for 7 Days, #21 TAB Prov: KARTHIK TOLEDO DO 02/21/23 KARTHIK TOLEDO DO Feb 21, 2023 16:02
[2023-02-21 16:03] VITALS: BP 136/77
[2023-02-21 16:03] LABS: COLOR,URINE YELLOW; GLUCOSE, URINE (UA) TRACE (NEGATIVE); KETONES,URINE TRACE (NEGATIVE); LEUKOCYTE ESTERASE ,URINE 2+ (NEGATIVE); NITRITE,URINE NEGATIVE (NEGATIVE); PH,URINE 5.5 (5-9); PROTEIN,URINE 3+ (NEGATIVE)
[2023-02-21 16:06] LABS: BACTERIA,URINE LARGE /HPF; BILIRUBIN,URINE 1+ (NEGATIVE); CLARITY,URINE CLOUDY; WBC,URINE >100 /HPF
[2023-02-21] MEDS ORDERED: CEPH500T PO (16:17)
[2023-02-21] MEDS ORDERED: CEPHALEXIN 250 MG CAPSULE PO SCH (16:30)
== END 2023-02-21 16:25 | disposition home or self-care (01) ==
LOC: EDUNIT# 15:48 → ER FS 15:50
DX: N39.0 Urinary tract infection, site not specified (principal)
CPT/HCPCS: 81000; 87077; 87088; 87186; 99283